=== PATIENT | male | born 1970 | race Caucasian/White ===

== ENCOUNTER 2017-08-06 12:30 | Outpatient (RCR) | payer MEDICARE, SELFPAY ==
--- NOTE | 2017-08-06 14:09 | HP.PTEVAL_ITS ---
Patient's Visit Information BRIAN DAVILA is a 47 year old M referred to Physical Therapy by Freedom Markham DO with a diagnosis of Chronic pain syndrome. Date of Evaluation: 08/06/17 Physical Therapist: Vlad Carlton PT, - Visit Plan Frequency: 2x /Week Duration: 3-6 weeks Plan: Aquatic therapy program consisting of UE/LE strengthening, core and scapular stab, and HEP - Subjective Subjective: Pt reports he has had nonhodgkins lymphoma for over 10 years now. Pt reports he has been treated for this over a 10 year life span. Pt reports he has become debilitated over this time span. Pt reports most of his joints are bone on bone at his time, and has pain throughout his entire body. Pt notes he has OA and RA secondary to the chemo he has taken. Pt reports he is CA free in one month which will be for one year. Pt notes this is the third time this has happened. Pt reports everything is difficult including walking, and riding his bike. Pt notes he pays for those activiies for several days afterwards. Pt reports his goal is to be able to get some level of pain relief from the therapy. - Pain overall body Pain Intensity (Out of 10): 4 Pain Intensity Range: 10 Comment: without meds - Objective Neuro: B UE and LE sensation are WNL to light touch. all reflexes= 1/3. MMT: B UE/LE strength is 3/5 and painful with all testing. Gait: Pt able to ambulate 120 until becoming winded and complaining of hip and knee pain. ROM: B UE's and LE's are WFL at this time - Goals Goal 1:: Decrease overall body pain x 25 percent to aid with IADL's Goal Time Frame: 4-6 Weeks Goal 2:: Increase B UE and LE strength x 1 grade to aid with IADL's Goal Time Frame: 4-6 Weeks Goal 3:: I with HEP Goal Time Frame: 4-6 Weeks - Rehabilitation Potential Physical Therapy Diagnosis: Pt is weak and painful throughout his body secondary to residual effects from non-hogdkins lymphoma Rehabilitation Potential: Good - Anticipated Interventions Patient/Client Instruction: Educate patient on: Condition, Plan of Care For the Purpose of:: To improve self management Therapeutic Exercise to Include: Strength training, Endurance training, Postural training, Flexibilty training, In an aquatic setting, Dynamic Lumbar Stabilization, Scapular Strength/Stabilization For the Purpose of:: To decrease pain, To improve muscle performance and motor function, To improve ability to perform ADL's Thank you for the opportunity to evaluate your patient. For Medicare and Medicare HMO plans, please review the plan of care and approve it. It will need to be FAXED BACK to us at [phone] for Medicare purposes. Please let me know if there are questions or concerns regarding this plan of care. Physician Signature: Date:
[2017-08-19 18:14] LABS: Absolute Lymphocyte Count 1.89 X10^3/ul (0.83-4.51); Absolute Neutrophil Count 6.6 X10^3/uL (2.0-7.7); Basophil# 0.05 X10^3/uL; Basophil% 0.5 % (0-1); Eosinophil# 0.42 X10^3/uL; Eosinophils% 4.3 % (0-5); Hematocrit 50.3 % (40-54); Hemoglobin 17.7 g/dl (13.0-16.5); Lymphocyte # 1.89 X10^3/ul (4.0); Lymphocyte % 19.1 % (19-41); Mean Corp Hgb Conc 35.2 g/gl (32-36); Mean Corpuscular Hgb 31.2 pg (27.0-32.0); Mean Corpuscular Volume 88.6 fL (80-94); Mean Platelet Vol. 12.1 fl (6.2-12.0); Monocyte# 0.86 X10^3/uL; Monocyte% 8.7 % (0-10); Neutrophil # 6.62 X10^3/uL (2.7-7.7); POSITIVE COUNT NO; POSITIVE DIFFERENTIAL NO; POSITIVE MORPHOLOGY NO; Platelet Count 257 K/mm3 (150-450); RBC Distribution Width CV 12.8 % (11.6-14.6); RBC Distribution Width SD 41.3 fl (35.1-43.9); Red Blood Count 5.68 M/mm3 (4.6-6.2); White Blood Count 9.9 K/mm3 (4.4-11.0)
[2017-08-19 18:25] LABS: Cholesterol 169 mg/dL (200); High Density Lipoprotein 43 mg/dL; Thyroid Stim Hormone (TSH) 0.82 uIU/mL (0.358-3.74); Triglycerides 170 mg/dL; Very Low Density Lipoprotein 34 mg/dL (5-40)
[2017-08-19 18:53] LABS: Hemoglobin A1c 5.5 % (4.2-6.3)
[2017-08-20 09:05] LABS: Vitamin D,25 Hydroxy 12.6 ng/mL
[2017-08-20 09:50] LABS: ALB/GLOB Ratio 1.4 RATIO (0.9-2.4); AST(SGOT) 29 U/L (15-37); Alanine Aminotransfer ALT/SGPT 43 U/L (12-78); Albumin, Serum 4.2 g/dL (3.4-5.0); Alkaline Phosphatase 140 U/L (45-117); Anion Gap 12 (5-15); BUN 8 mg/dL (7-18); BUN/Creat Ratio 8.5 RATIO (10-20); Calcium,Total 8.7 mg/dL (8.5-10.1); Chloride 110 mmol/L (98-107); Creatinine, Serum 0.94 mg/dL (0.70-1.30); EST Glomerular Filtration Rate 91 mL/min (>60); Est Glom Filt Rate - Afr Amer 110 mL/min (>60); Ferritin 64 ng/mL (26-388); Glucose 84 mg/dL (70-110); Iron 113 ug/dL (65-175); Iron Binding Capacity,Total 425 ug/dL (250-450); PERCENT IRON SATURATION 26.6 % (15.0-55.0); Potassium 4.3 mmol/L (3.5-5.1); Protein, Total 7.2 g/dL (6.4-8.2); Sodium Level 144 mmol/L (136-145)
--- NOTE | 2017-10-23 13:23 | HP.PT.NRP ---
HP - Discharge Summary (1) - Patient Information BRIAN DAVILA was seen in my office for initial evaluation on 08/06/17. The following Plan of Care was established for this patient: Initial Frequency: 2x /Week Initial Duration: 3-6 weeks - Anticipated Interventions Patient/Client Instruction: Educate patient on: Condition, Plan of Care For the Purpose of:: To improve self management Therapeutic Exercise to Include: Strength training, Endurance training, Postural training, Flexibilty training, In an aquatic setting, Dynamic Lumbar Stabilization, Scapular Strength/Stabilization For the Purpose of:: To decrease pain, To improve muscle performance and motor function, To improve ability to perform ADL's This patient was last seen in our office . Pertinent comments regarding their Physical therapy will appear below: Pt was treated for 4 PT visits through the date of 08/19/17 for his shoulder pain. Pt did not return after that visit through todays date, and is therefore discontinued at this time with Rx not being re-assessed At this point I will be discontinuing this patient from physical therapy. I would be happy to see this patient again in the future if found appropriate by the physician. Thank you! Vlad Carlton, PT,
== END 2017-08-19 19:00 | disposition home or self-care (01) ==
LOC: PT 13:03
PROVIDERS: Family Medicine; Family Provider Internal Medicine; PCP Internal Medicine; Visit Provider Anesthesiology Pain Medicine
DX: M17.0 Bilateral primary osteoarthritis of knee (principal); F11.20 Opioid dependence, uncomplicated; M15.9 Polyosteoarthritis, unspecified; Z85.72 Personal history of non-Hodgkin lymphomas; M79.1 Myalgia; G89.4 Chronic pain syndrome; D75.1 Secondary polycythemia; Z79.899 Other long term (current) drug therapy; R73.02 Impaired glucose tolerance (oral); F41.8 Other specified anxiety disorders; E55.9 Vitamin D deficiency, unspecified; C83.10 Mantle cell lymphoma, unspecified site
CPT/HCPCS: 36415; 80053; 80061; 82306; 82728; 83036; 83540; 83550; 84443; 85025; 97113 ×3; 97163; G8978; G8979

== ENCOUNTER → 2017-11-05 16:39 | Outpatient (CLI) | payer MEDICARE, SELFPAY ==
[2017-11-03 09:26] VITALS: BP 139/83; BMI 28.7
[2017-11-05 18:21] LABS: Potassium 3.9 mmol/L (3.5-5.1)
== END ==
PROVIDERS: Family Provider Family Medicine; PCP Family Medicine; Visit Provider Family Medicine
DX: E87.6 Hypokalemia (principal)
CPT/HCPCS: 36415; 84132

== ENCOUNTER → 2017-11-05 18:09 | Outpatient (CLI) | payer MEDICARE, SELFPAY ==
[2017-11-03 09:26] VITALS: BP 139/83; BMI 28.7
--- NOTE | 2017-11-05 | FLU_PTH ---
PATIENT: BIRAN DAVILA LOC: [facility] U#:[id number] AGE/SX: 55/M ROOM: RE11/05/[address]: Dr. Kleber Worley MD : 1970 BED: DIS: SPEC #: [id number] RECD: 11/05/17 18:17 STATUS: KARL NELSON #: [id number] ELMO: 11/05/17 00:[address]: Kleber Worley DEPT: CYTOLOGY RECD BY: Dasia Goodwin ENTERED: 11/06/17 10:48 SP TYPE: Fluid OTHR DR: Dr. Yang Swann MD Tissues: Buttock, NOS Procedures: Pap Stain (control) Special Stain Group II Surgery Specimen Level IV Cell Block Cytospin Fluid HEADER OPERATION: Mass of subcutaneous mass, right buttock PRE-OP DIAGNOSIS: R22.9 TISSUE SUBMITTED: Fluid of mass, right buttock, for cytology DIAGNOSIS CYTOLOGY Fine needle aspiration, right buttock mass (cytospins and cell block): Negative for malignant cells. AM:jasmin 11/07/17 COMMENT The specimen primarily contains scattered macrophages and polymorphous lymphocytes and amorphous proteinaceous material. Clinical correlation is suggested. CYTOLOGY STUDY Slides are reviewed. CYTOLOGY GROSS Received is 5 ml of pale yellow cloudy fluid labeled with the patient's name and and designated per the requisition as mass right buttock. Submitted for cytology preparation including cell block. / CC:cc 11/06/17 TC:5 CPT: 66725, 26070
== END ==
PROVIDERS: Family Provider Family Medicine; PCP Family Medicine; Visit Provider Surgery
DX: R22.9 Localized swelling, mass and lump, unspecified (principal); E87.6 Hypokalemia
CPT/HCPCS: 36415; 84132; 87070; 87075; 87205; 88108; 88305; 88313

== ENCOUNTER → 2017-11-11 14:47 | Outpatient (CLI) | payer MEDICARE, SELFPAY ==
[2017-11-11 16:17] LABS: ALB/GLOB Ratio 1.5 RATIO (0.9-2.4); AST(SGOT) 23 U/L (15-37); Alanine Aminotransfer ALT/SGPT 49 U/L (16-61); Albumin, Serum 4.5 g/dL (3.2-5.0); Alkaline Phosphatase 132 U/L (45-117); Anion Gap 9 (5-15); BUN 23 mg/dL (7-18); BUN/Creat Ratio 21.5 RATIO (10-20); Calcium,Total 9.4 mg/dL (8.5-10.1); Chloride 104 mmol/L (98-107); Creatinine, Serum 1.07 mg/dL (0.70-1.30); EST Glomerular Filtration Rate 78 mL/min (>60); Est Glom Filt Rate - Afr Amer 94 mL/min (>60); Ferritin 181 ng/mL (26-388); Globulin 3.1 g/dL (2.2-4.2); Glucose 84 mg/dL (74-106); Iron 182 ug/dL (65-175); Iron Binding Capacity,Total 426 ug/dL (250-450); Protein, Total 7.6 g/dL (6.4-8.2); Sodium Level 138 mmol/L (136-145)
== END ==
PROVIDERS: Family Provider Family Medicine; PCP Family Medicine; Visit Provider Family Medicine
DX: D75.1 Secondary polycythemia (principal)
CPT/HCPCS: 36415; 80053; 82728; 83540; 83550

== ENCOUNTER → 2017-11-25 14:08 | Outpatient (CLI) | payer MEDICARE, SELFPAY ==
--- NOTE | 2017-11-25 14:13 | RAD_ITS ---
STUDY: X-RAY - CERVICAL SPINE REASON FOR EXAM: Male, 47 years old. Headaches. TECHNIQUE: 7 view(s) of the cervical spine were obtained including oblique view in extension and flexion views.. COMPARISON: None FINDINGS: Normal anterior atlantoaxial articulation. Normal odontoid process. There is straightening of the normal cervical lordosis. There is multi-level endplate spondylosis. Normal visualized intervertebral neuroforamina. The soft tissue structures are unremarkable. RAD/Cerv Spine 4 or 5 Views IMPRESSION: Disc space narrowing and spondylosis more prominent at the C5-C6 and C6-C7 levels. Electronically Signed: Matthias Hernandez MD at 15:59 EST Tel [phone], Service support ,
== END ==
PROVIDERS: Family Provider Family Medicine; PCP Family Medicine; Visit Provider Family Medicine
DX: M48.02 Spinal stenosis, cervical region (principal); M47.892 Other spondylosis, cervical region; R51 Headache
CPT/HCPCS: 72050

== ENCOUNTER → 2017-11-28 17:52 | Outpatient (CLI) | payer MEDICARE, SELFPAY ==
--- NOTE | 2017-11-28 17:55 | MRI_ITS ---
STUDY: MRI BRAIN WITH AND WITHOUT CONTRAST REASON FOR EXAM: Male, 47 years old. Left neck pain with blurred vision TECHNIQUE: Standardized multiplanar fat and water weighted pulse sequences were obtained. 10 ml of Gadavist contrast material was administered intravenously for the contrast portion of the examination. COMPARISON: None. FINDINGS: Normal size of the ventricles and extra-axial spaces for the patient's age. There are scattered tiny punctate white matter lesions without mass effect or restricted diffusion. Normal bilateral basal ganglia. Normal thalami. There is no extra-axial fluid accumulation. Normal flow voids within the major intracranial circulation suggesting patency by spin echo criteria. Normal venous enhancement. There is no enhancing intra-axial or extra-axial abnormality. There are tiny perivascular spaces in the right midbrain. Normal sella turcica, pituitary gland, infundibular stalk, optic chiasm and hypothalamus. Normal tectal plate and pineal gland. Normal midbrain, kvng and medulla. Normal cerebellum. Normal basal cisterns. Normal bilateral temporal bones. Normal bilateral internal auditory canals. No demonstrated orbital abnormality, within the constraints of a routine brain study. There is a mucous retention cyst within the maxillary sinuses bilaterally and minor mucosal thickening of the ethmoid air cells. Normal calvarium and skull base. Normal visualized soft tissue structures. Normal visualized upper cervical spine. MRI/Brain W/WO Contrast IMPRESSION: Minor periventricular white matter ischemic changes without evidence for infarct. No evidence for metastatic disease. Electronically Signed: Torey Lamar MD at 19:15 EST , Service support ,
== END ==
PROVIDERS: Family Provider Family Medicine; PCP Family Medicine; Visit Provider Family Medicine
DX: R42 Dizziness and giddiness (principal)
CPT/HCPCS: 70553; A9585

== ENCOUNTER 2018-02-23 23:36 | Inpatient (IN) | payer MEDICARE, SELFPAY ==
[2018-02-23 23:37] VITALS: BP 120/82; PULSE 96; RESP 27; TEMP 37.2; O2SAT 89; BMI 29.0
[2018-02-23 23:39] VITALS: RESP 26; O2SAT 94
[2018-02-23 23:45] VITALS: O2SAT 93
[2018-02-24] VITALS (16 sets, daily range): BP systolic 105–132; BP diastolic 55–81; PULSE 74–98; RESP 12–20; TEMP 36.4–37.7; O2SAT 93–98; BMI 29.0; BMI 29.1
--- NOTE | 2018-02-24 00:11 | EKG12_ITS ---
Test Reason : SOB Blood Pressure : / mmHG Vent. Rate : 087 BPM Atrial Rate : 087 BPM P-R Int : 156 ms QRS Dur : 080 ms QT Int : 374 ms P-R-T Axes : 045 041 041 degrees QTc Int : 450 ms Normal sinus rhythm Normal ECG Confirmed by ROGER VIRGEN ([id number]), rewrite editor JAH REECE ([id number]) on 03/09/2018 6:00:47 PM Referred By: RODGER Confirmed By:ROGER VIRGEN
--- NOTE | 2018-02-24 00:12 | RAD_ITS ---
STUDY: X-RAY CHEST REASON FOR EXAM: Male, 47 years old. Shortness of breath, fever and cough. TECHNIQUE: PA and lateral views of the chest. COMPARISON: 03/23/2017. FINDINGS: The lungs are clear and expanded. There is no demonstrated pleural abnormality. Normal size heart. Normal mediastinum and melva. Normal visualized pulmonary arteries. There is atherosclerotic calcification of the aortic arch. There is mild levoscoliosis of the lower thoracic spine. Normal visualized ribs, clavicles, and shoulders. There is no demonstrated abnormality of the visualized soft tissue structures of the upper abdomen. RAD/Chest PA and Lateral IMPRESSION: No active pulmonary disease. Electronically Signed: Yoan Jones MD at 1:09 EDT Tel , Service support ,
[2018-02-24] MEDS: Ketorolac 30 MG/ML Syringe IV (00:18)
[2018-02-24] MEDS: 0.9% Normal Saline 1,000 ML 1000 ML IV (00:18)
[2018-02-24] MEDS: Ondansetron 4 MG/2 ML Vial IV (00:18)
[2018-02-24 00:20] LABS: Absolute Neutrophil Count 15.4 X10^3/uL (2.0-7.7); Basophil# 0.03 X10^3/uL; Basophil% 0.2 % (0-1); Eosinophils% 2.3 % (0-5); Hematocrit 42.2 % (40-54); Hemoglobin 14.3 g/dl (13.0-16.5); Mean Corp Hgb Conc 33.9 g/gl (32-36); Mean Corpuscular Hgb 30.7 pg (27.0-32.0); Mean Corpuscular Volume 90.6 fL (80-94); Mean Platelet Vol. 11.2 fl (6.2-12.0); Monocyte# 1.17 X10^3/uL; Monocyte% 6.6 % (0-10); Neutrophil # 15.38 X10^3/uL (2.7-7.7); Neutrophil % 86.8 % (47-70); POSITIVE COUNT NO; POSITIVE DIFFERENTIAL NO; POSITIVE MORPHOLOGY NO; Platelet Count 229 K/mm3 (150-450); RBC Distribution Width CV 12.6 % (11.6-14.6); RBC Distribution Width SD 41.3 fl (35.1-43.9); Red Blood Count 4.66 M/mm3 (4.6-6.2); White Blood Count 17.7 K/mm3 (4.4-11.0)
[2018-02-24 00:32] LABS: Anion Gap 9 (5-15); BUN 22 mg/dL (7-18); BUN/Creat Ratio 13.8 RATIO (10-20); Calcium,Total 9.1 mg/dL (8.5-10.1); Chloride 110 mmol/L (98-107); EST Glomerular Filtration Rate 49 mL/min (>60); Est Glom Filt Rate - Afr Amer 59 mL/min (>60); Glucose 118 mg/dL (74-106); Potassium 3.9 mmol/L (3.5-5.1); Sodium Level 143 mmol/L (136-145)
[2018-02-24] MEDS: Ipratropium/Albuterol Sulfate 3 ML AMPUL.NEB INHALATION ×5 (00:34→19:27)
[2018-02-24 01:03] LABS: Lactic Acid 1.2 mmol/L (0.4-2.0)
--- NOTE | 2018-02-24 02:07 | PCM.HP.STD ---
Problem List (1) History of partial colectomy Status: Chronic (2) Lymphoma Status: Chronic Comment: Mantle cell (3) Insomnia Status: Chronic (4) Chronic pain disorder Status: Chronic (5) Nausea Status: Resolved (6) Hypertension Status: Chronic (7) Anxiety Status: Chronic (8) GERD (gastroesophageal reflux disease) Status: Chronic (9) COPD (chronic obstructive pulmonary disease) Status: Acute Qualifiers: COPD type: unspecified COPD Qualified Code(s): J44.9 - Chronic obstructive pulmonary disease, unspecified (10) Marijuana use Status: Suspected (11) Tobacco dependence Status: Resolved History of Present Illness Date of Admission: 02/24/18 Chief Complaint: shortness of breath The patient is a 47 year old male patient with a significant past medical history of lymphoma. He was recently treated for pneumonia two weeks ago after having a routine follow up CT scan for his oncologist. For the past two days he has had more trouble breathing and worsening shortness of breath. He has a temp of 102 at home and requires oxygen at this time. The patient improved with breathing treatment. He has a wbc count of 17,000. He will be admitted for COPD exacerbation. Past Medical History Past Medical History (Chronic Problems): Chronic Problems (Last Reviewed 11/05/17 @ 16:06 by Cassie Trujillo) History of partial colectomy (Chronic) Lymphoma (Chronic) Mantle cell Insomnia (Chronic) Chronic pain disorder (Chronic) Hypertension (Chronic) Anxiety (Chronic) GERD (gastroesophageal reflux disease) (Chronic) Allergies hydrocodone bitartrate [From Vicodin] Adverse Reaction (Verified 02/23/18 23:37) Nausea Home Medications: Ambulatory Orders Medication Instructions Recorded Albuterol IH (ProAir) [Proair Hfa] 2 puff INHALATION Q6H PRN PRN 07/18/14 Diazepam [Valium] 10 mg PO BID 07/18/14 Hydrochlorothiazide 25 mg PO DAILY 07/18/14 Ibuprofen [Motrin] 800 mg PO TID PRN PRN 07/18/14 Metoprolol(XL)Succ [Toprol Xl 100 mg PO DAILY 07/18/14 (Beta Kyle)] Omeprazole [Prilosec] 20 mg PO BID 07/18/14 Oxycodone HCl/Acetaminophen 1 tab PO Q6H PRN PRN 07/18/14 [Percocet 5-325] Zolpidem Tartrate [Ambien] 20 mg PO DAILY 07/18/14 fentaNYL patch [Duragesic patch] 75 mcg TRANSDERM. Q72H 07/18/14 Folic Acid 800 mcg PO DAILY@0800 01/16/17 Potassium Chloride [K-Dur] 20 meq PO DAILY 01/16/17 proMETHazine tablet [Phenergan 25 mg PO Q6H PRN PRN #10 tab 01/17/17 tablet] Amlodipine [Norvasc] 10 mg PO DAILY 03/23/17 Ondansetron [Zofran] 8 mg PO Q8H PRN PRN 03/23/17 predniSONE tablet See Taper PO DAILY #30 tab 03/24/17 buspirone 7.5 mg tablet 7.5 mg PO BID 11/03/17 cholecalciferol (vitamin D3) 50,000 unit PO QWEEK 11/03/17 50,000 unit capsule hydroxyzine HCl 50 mg tablet 50 mg PO TID-QID PRN 11/03/17 Clonazepam [Klonopin] 0.5 mg PO DAILY 02/23/18 Surgical History: - - Bowel resection secondary to diverticulitis, hernia repair. Psychiatric History: Anxiety Smoking Status: Former smoker - *Family History Maternal History Items: No pertinent history Paternal History Items: Diabetes, Hypertension Review of Systems Constitutional: Reports: Fever. Denies: Chills, Weight Change HEENT: Denies: Head Aches, Sinus Congestion, Sinus Drainage Cardiovascular: Denies: Chest Pain, Palpitations Respiratory: Reports: Shortness of breath at rest, Shortness of breath upon exertion. Denies: Cough, Sputum production Gastrointestinal: Denies: Abdominal Pain, Nausea, Vomiting Genitourinary: Denies: Dysuria Musculoskeletal: Denies: Joint Pain, Joint Tenderness Skin: Denies: Rash, Wounds Neurological: Denies: Numbness, Tingling, Focal weakness Psychiatric: Denies: Anxiety, Depression, Homicidal Ideations, Suicidal Ideations Hematologic/ Lymphatic: Denies: Easy Bruising, Easy Bleeding VTE Information - Inpt Only VTE Present on Admission: No VTE Mechan Device Prophylaxis: None VTE Pharm Prophylaxis ordered?: Yes - Physical Exam General: Alert, Oriented x3, Cooperative HEENT: Atraumatic, Normocephalic Neck: Supple Lungs: Normal air movement, Rhonchi, Wheezes Cardiovascular: Regular rate, Normal S1, Normal S2, No murmurs Abdomen: Bowel Sounds Present Extremities: Capillary Refill Less than 3 Seconds Skin: No rashes Musculoskeletal: No Tenderness to Palpation of Joints or Extremities Neurological: Neuro grossly intact Psych/Mental Status: Normal Affect, Appropriate Vital Signs Temp Pulse Resp BP Pulse Ox 98.9 F 74 16 132/69 H 98 02/23/18 23:37 02/24/18 01:16 02/24/18 01:16 02/24/18 01:16 02/24/18 01:16 Oxygen Flow Rate (L/min) 3 Oxygen Delivery Method Nasal Cannula Weight: 214 lb 4.629 oz Body Mass Index (BMI) 29.0 Laboratory Tests Past 24 Hrs 02/23/18 02/23/18 02/24/18 23:59 23:59 00:25 WBC 17.7 H RBC 4.66 Hgb 14.3 Hct 42.2 MCV 90.6 MCH 30.7 MCHC 33.9 RDW 12.6 RDW Differential 41.3 Plt Count 229 MPV 11.2 Immature Gran % (Auto) 0.100 Neut % (Auto) 86.8 H Lymph % (Auto) 4.0 L [place] % (Auto) 6.6 Eos % (Auto) 2.3 Baso % (Auto) 0.2 Absolute Neuts (auto) 15.4 H Absolute Lymphs (auto) 0.70 L Total Counted Not Reportable Sodium 143 Potassium 3.9 Chloride 110 H Carbon Dioxide 24.0 Anion Gap 9 BUN 22 H Creatinine 1.60 H Estim Creat Clear Calc 61.30 Est GFR (MDRD) Af Amer 59 L Est GFR (MDRD) Non-Af 49 L BUN/Creatinine Ratio 13.8 Glucose 118 H Lactic Acid 1.2 Calcium 9.1 Assessment/Plan Chronic Problems (Last Reviewed 11/05/17 @ 16:06 by Cassie Truijllo) Hypertension (Chronic) Anxiety (Chronic) GERD (gastroesophageal reflux disease) (Chronic) COPD (chronic obstructive pulmonary disease) (Chronic) Marijuana use (Chronic) Tobacco dependence (Chronic) Assessment - COPD exacerbation Plan - admit to medical surgical floor - oxygen per protocol - Levaquin 500mg IV q day, solumedrol 40mg IV q 8hrs, duoneb INH q 4hrs prn - continue routine home medications - repeat cbc,bmp in am - LMWH for DVT prophylaxis Code Visit Inpatient E&M: 11899 Init Hosp L2
--- NOTE | 2018-02-24 02:11 | ED.DCSUM_ITS ---
- ER Visit Summary Date of Service: 02/24/18 Chief Complaint: Shortness of breath History of Present Illness: The patient is a 43 M who presents with shortness of breath and cough. He states that he has not felt well since yesterday. He has a history of non-Hodgkin lymphoma and is currently in remission. He had a CT of the chest 2 months ago and incidentally was noted to have pneumonia was treated with antibiotics and improved. He reports now fever of 102.3 at home. He reports congestion rhinorrhea sore throat nonproductive cough nausea vomiting diarrhea and poor oral intake today. Physical Examination: Afebrile pulse ox 94% on 4 L nasal cannula respiratory rate 26 Moist mucous membranes fine heart regular rate and rhythm Scattered inspiratory and expiratory wheezing Abdomen soft Alert Test Results: EKG shows sinus rhythm at a rate of 87. Laboratory studies notable for white blood cell count 17.7, creatinine 1.6. Lactic acid normal. Blood cultures were also sent. Chest x-ray shows no acute disease. Emergency Department Course and Treatment: Patient reports adverse side effects from nebulized aerosols however did agree to one DuoNeb. He did have significant improvement with this. He was given IV Solu-Medrol. Although he has leukocytosis his vitals are stable he is afebrile here and there is no infiltrate on chest x-ray. The patient does have COPD exacerbation. His last creatinine was 0.9. He has an acute kidney injury. He was discussed with hospitalist and admitted. Treatment Plan: [] Disposition: Admit Impression: COPD exacerbation Acute kidney injury This note was generated with [employer] dictation software. It may contain incorrect words, spelling, and punctuation that were not noted in review of the chart prior to signing ED Disposition - Plan for ED Patient: Chief Complaint: Shortness of Breath Referrals: Linsey Medley MD [Primary Care Provider] -
[2018-02-24] MEDS: MethylPREDNISolone 125 MG/2 ML Vial IV (02:29)
[2018-02-24] MEDS: Ibuprofen 400 MG Tablet 800 MG PO (03:40)
[2018-02-24] MEDS: clonazePAM 0.5 MG Tablet PO ×3 (04:17→21:13)
[2018-02-24 06:08] LABS: Absolute Lymphocyte Count 0.66 X10^3/ul (0.83-4.51); Absolute Neutrophil Count 11.8 X10^3/uL (2.0-7.7); Basophil# 0.01 X10^3/uL; Basophil% 0.1 % (0-1); Eosinophil# 0.02 X10^3/uL; Eosinophils% 0.2 % (0-5); Hematocrit 36.7 % (40-54); Hemoglobin 12.7 g/dl (13.0-16.5); Lymphocyte # 0.66 X10^3/ul (4.0); Lymphocyte % 5.2 % (19-41); Mean Corp Hgb Conc 34.6 g/gl (32-36); Mean Corpuscular Hgb 31.6 pg (27.0-32.0); Mean Corpuscular Volume 91.3 fL (80-94); Mean Platelet Vol. 11.6 fl (6.2-12.0); Monocyte# 0.14 X10^3/uL; Monocyte% 1.1 % (0-10); Neutrophil # 11.77 X10^3/uL (2.7-7.7); Neutrophil % 93.3 % (47-70); Platelet Count 166 K/mm3 (150-450); RBC Distribution Width CV 12.1 % (11.6-14.6); RBC Distribution Width SD 39.8 fl (35.1-43.9); Red Blood Count 4.02 M/mm3 (4.6-6.2); White Blood Count 12.6 K/mm3 (4.4-11.0)
[2018-02-24] MEDS: 0.9% NaCl Peripheral Flush Adult/Peds IV ×2 (06:08→21:12)
[2018-02-24 06:13] LABS: POSITIVE COUNT NO; POSITIVE DIFFERENTIAL NO; POSITIVE MORPHOLOGY NO
[2018-02-24 06:45] LABS: ALB/GLOB Ratio 1.3 RATIO (0.9-2.4); AST(SGOT) 21 U/L (15-37); Alanine Aminotransfer ALT/SGPT 26 U/L (16-61); Albumin, Serum 3.8 g/dL (3.2-5.0); Alkaline Phosphatase 93 U/L (45-117); Anion Gap 11 (5-15); BUN 21 mg/dL (7-18); BUN/Creat Ratio 14.4 RATIO (10-20); Calcium,Total 8.3 mg/dL (8.5-10.1); Chloride 108 mmol/L (98-107); Creatinine, Serum 1.46 mg/dL (0.70-1.30); EST Glomerular Filtration Rate 54 mL/min (>60); Est Glom Filt Rate - Afr Amer 66 mL/min (>60); Estimated Creatinine Clearance 67.18 ml/min; Globulin 2.9 g/dL (2.2-4.2); Glucose 185 mg/dL (74-106); Potassium 3.8 mmol/L (3.5-5.1); Protein, Total 6.7 g/dL (6.4-8.2); Sodium Level 142 mmol/L (136-145)
[2018-02-24] MEDS: Folic Acid 1 MG Tablet PO (07:38)
[2018-02-24] MEDS: hydroCHLOROthiazide 25 MG Tablet PO (10:15)
[2018-02-24] MEDS: Enoxaparin 40 MG/0.4 ML Syringe SC (10:16)
[2018-02-24] MEDS: Metoprolol(XL)Succ 100 MG Tablet PO (10:17)
[2018-02-24] MEDS: Pantoprazole Sodium 20 MG Tablet PO ×2 (10:17→21:12)
[2018-02-24] MEDS: amLODIPine 10 MG Tablet PO (10:18)
[2018-02-24] MEDS: levoFLOXacin IV 500 MG/100 ML BAG 100 MG IV (10:18)
--- NOTE | 2018-02-24 12:21 | CASEMGMT ---
See RN CM Assessment Link. DC PLAN HOME. no needs identified. Nereida POTTSN RN ACM
--- NOTE | 2018-02-24 17:34 | PCM.HOSP.N ---
Hospitalist Note The patient was admitted earlier today by Dr. Jefferson and I reviewed his H&P. I also saw the patient, evaluated her and obtained relevant history, performed a clinical exam reviewed diagnostic data. We will continue on IV steroids, bronchodilators and antibiotic for COPD exacerbation.
[2018-02-24] MEDS: oxyCODONE 5 MG Tablet 10 MG PO (21:28)
[2018-02-24] MEDS: Zolpidem Tartrate 5 MG Tablet PO (22:55)
[2018-02-25] VITALS (11 sets, daily range): BP systolic 109–127; BP diastolic 58–68; PULSE 75–96; RESP 16–20; TEMP 36.4–37; O2SAT 2–96
[2018-02-25] MEDS: Ipratropium/Albuterol Sulfate 3 ML AMPUL.NEB INHALATION ×5 (00:05→22:36)
[2018-02-25] MEDS: proMETHazine 25 MG Tablet PO (00:55)
[2018-02-25] MEDS: 0.9% NaCl Peripheral Flush Adult/Peds IV ×3 (06:39→22:55)
[2018-02-25] MEDS: hydroCHLOROthiazide 25 MG Tablet PO (07:38)
[2018-02-25] MEDS: Folic Acid 1 MG Tablet PO (07:38)
[2018-02-25] MEDS: Pantoprazole Sodium 20 MG Tablet PO ×2 (07:39→22:55)
[2018-02-25] MEDS: Metoprolol(XL)Succ 100 MG Tablet PO (07:39)
[2018-02-25] MEDS: amLODIPine 10 MG Tablet PO (07:39)
[2018-02-25] MEDS: clonazePAM 0.5 MG Tablet PO ×2 (07:42→22:55)
[2018-02-25] MEDS: oxyCODONE 5 MG Tablet 10 MG PO (07:46)
--- NOTE | 2018-02-25 09:45 | SLEEP ---
Seen patient and education was given on screening/testing for sleep disorder breathing. Patient verbalizes understanding and states that he has had a sleep study and it was negative that he has been dx with insomnia and takes 20mg of Ambien. I left patient with a brochure of information.
[2018-02-25] MEDS: Enoxaparin 40 MG/0.4 ML Syringe SC (10:08)
[2018-02-25] MEDS: levoFLOXacin IV 500 MG/100 ML BAG 100 MG IV (10:08)
--- NOTE | 2018-02-25 17:06 | PCM.PN.HOSP ---
Subjective: CC: Shortness of breath and cough Objective: The patient has improved but he still has significant wheezing, cough and shortness of breath. He is still requiring supplemental oxygen per nasal cannula. Vitals/I&O's: Vital Signs Temp Pulse Resp BP Pulse Ox 98.6 F 91 18 109/66 2 02/25/18 13:20 02/25/18 13:20 02/25/18 13:20 02/25/18 13:20 02/25/18 13:20 Oxygen Flow Rate (L/min) 2 Oxygen Delivery Method Nasal Cannula Weight: 97.3 kg Body Mass Index (BMI) 29.0 Intake and Output for Last 24 Hours 02/23/18 02/24/18 02/25/18 23:59 23:59 23:59 Intake Total 900 / 900 2400 / 2400 Balance 900 / 900 2400 / 2400 General: Alert, Oriented x3 Neck: Supple Lungs: Wheezes Cardiovascular: Normal S1, Normal S2 Abdomen: Bowel Sounds Present, Soft, Non Tender Extremities: No edema Current Medications Albuterol Sulfate (Ventolin Aerosols) 2.5 mg INHALATION Q6H PRN PRN Reason: SHORTNESS OF BREATH Albuterol/Ipratropium (Duoneb) 3 ml INHALATION Q4H.RT [facility] Last Admin: 02/25/18 14:15 Dose: Not Given Amlodipine Besylate (Norvasc) 10 mg PO DAILY [facility] Last Admin: 02/25/18 07:39 Dose: 10 mg Clonazepam (Klonopin) 0.5 mg PO BID [facility] Last Admin: 02/25/18 07:42 Dose: 0.5 mg Enoxaparin Sodium (Lovenox) 40 mg SC DAILY@1000 [facility] Last Admin: 02/25/18 10:08 Dose: 40 mg Fentanyl (Duragesic Patch) 75 mcg TRANSDERM. Q72H [facility] Last Admin: 02/24/18 10:14 Dose: 75 mcg Folic Acid (Folic Acid) 1 mg PO DAILY@0800 [facility] Last Admin: 02/25/18 07:38 Dose: 1 mg Hydrochlorothiazide (Hctz) 25 mg PO DAILY [facility] Last Admin: 02/25/18 07:38 Dose: 25 mg Hydroxyzine Pamoate (Vistaril Pamoate Capsule) 50 mg PO 4X/DAY PRN PRN PRN Reason: ANXIETY Levofloxacin (Levaquin Iv) 500 mg in 100 mls @ 100 mls/hr IV Q24 [facility] Last Admin: 02/25/18 10:08 Dose: 100 mls/hr Ibuprofen (Motrin) 800 mg PO TID PRN PRN PRN Reason: PAIN Last Admin: 02/24/18 03:40 Dose: 800 mg Magnesium Hydroxide (Milk Of Magnesia) 30 ml PO DAILY PRN PRN PRN Reason: Constipation Methylprednisolone (Solu-Medrol) 40 mg IV Q8 [facility] Last Admin: 02/25/18 13:23 Dose: 40 mg Metoprolol Succinate (Toprol Xl (Beta Kyle)) 100 mg PO DAILY [facility] Last Admin: 02/25/18 07:39 Dose: 100 mg Ondansetron HCl (Zofran) 8 mg PO Q8H PRN PRN PRN Reason: NAUSEA Oxycodone HCl (Oxyir) 10 mg PO Q4H PRN PRN Reason: PAIN Last Admin: 02/25/18 07:46 Dose: 10 mg Pantoprazole Sodium (Protonix) 20 mg PO BID [facility] Last Admin: 02/25/18 07:39 Dose: 20 mg Potassium Chloride (K-Dur) 20 meq PO DAILY [facility] Last Admin: 02/25/18 07:38 Dose: 20 meq Promethazine HCl (Phenergan Tablet) 25 mg PO Q6H PRN PRN PRN Reason: NAUSEA Last Admin: 02/25/18 00:55 Dose: 25 mg Sodium Chloride () 5 - 30 ml IV UD PRN PRN Reason: SALINE FLUSH Last Admin: 02/25/18 13:23 Dose: 10 ml Zolpidem Tartrate (Ambien (Generic)) 5 mg PO QHS PRN PRN Reason: INSOMNIA Last Admin: 02/24/18 22:55 Dose: 5 mg Medical Necessity - Tobacco Use Smoking Status: Former smoker Assessment/Plan All Active Problems (Last Reviewed 11/05/17 @ 16:06 by Cassie Trujillo) S/P colonoscopy (Acute) H/O removal of cyst (Acute) Nausea (Resolved) COPD (chronic obstructive pulmonary disease) (Acute) Tobacco dependence (Resolved) Hodgkin lymphoma (Resolved) 1. acute COPD exacerbation; continue on IV steroids, bronchodilators and antibiotics. 2. Acute respiratory failure with hypoxia secondary to #1; we will continue on supplemental oxygen and wean as tolerated, home O2 evaluation. 3. Hypertension ; this is controlled. 4. History of lymphoma currently in remission ,will obtain CT scan of the chest. 5. Leukocytosis; will obtain CBC in a.m. 6. DVT prophylaxis; he is on Lovenox Code Visit Inpatient E&M: 78922 Subs Hosp L2
--- NOTE | 2018-02-25 17:09 | PN_ITS ---
Subjective: CC: Shortness of breath and cough Objective: The patient has improved but he still has significant wheezing, cough and shortness of breath. He is still requiring supplemental oxygen per nasal cannula. Vitals/I&O's: Vital Signs Temp Pulse Resp BP Pulse Ox 98.6 F 91 18 109/66 2 02/25/18 13:20 02/25/18 13:20 02/25/18 13:20 02/25/18 13:20 02/25/18 13:20 Oxygen Flow Rate (L/min) 2 Oxygen Delivery Method Nasal Cannula Weight: 97.3 kg Body Mass Index (BMI) 29.0 Intake and Output for Last 24 Hours 02/23/18 02/24/18 02/25/18 23:59 23:59 23:59 Intake Total 900 / 900 2400 / 2400 Balance 900 / 900 2400 / 2400 General: Alert, Oriented x3 Neck: Supple Lungs: Wheezes Cardiovascular: Normal S1, Normal S2 Abdomen: Bowel Sounds Present, Soft, Non Tender Extremities: No edema Current Medications Albuterol Sulfate (Ventolin Aerosols) 2.5 mg INHALATION Q6H PRN PRN Reason: SHORTNESS OF BREATH Albuterol/Ipratropium (Duoneb) 3 ml INHALATION Q4H.RT [facility] Last Admin: 02/25/18 14:15 Dose: Not Given Amlodipine Besylate (Norvasc) 10 mg PO DAILY [facility] Last Admin: 02/25/18 07:39 Dose: 10 mg Clonazepam (Klonopin) 0.5 mg PO BID [facility] Last Admin: 02/25/18 07:42 Dose: 0.5 mg Enoxaparin Sodium (Lovenox) 40 mg SC DAILY@1000 [facility] Last Admin: 02/25/18 10:08 Dose: 40 mg Fentanyl (Duragesic Patch) 75 mcg TRANSDERM. Q72H [facility] Last Admin: 02/24/18 10:14 Dose: 75 mcg Folic Acid (Folic Acid) 1 mg PO DAILY@0800 [facility] Last Admin: 02/25/18 07:38 Dose: 1 mg Hydrochlorothiazide (Hctz) 25 mg PO DAILY [facility] Last Admin: 02/25/18 07:38 Dose: 25 mg Hydroxyzine Pamoate (Vistaril Pamoate Capsule) 50 mg PO 4X/DAY PRN PRN PRN Reason: ANXIETY Levofloxacin (Levaquin Iv) 500 mg in 100 mls @ 100 mls/hr IV Q24 [facility] Last Admin: 02/25/18 10:08 Dose: 100 mls/hr Ibuprofen (Motrin) 800 mg PO TID PRN PRN PRN Reason: PAIN Last Admin: 02/24/18 03:40 Dose: 800 mg Magnesium Hydroxide (Milk Of Magnesia) 30 ml PO DAILY PRN PRN PRN Reason: Constipation Methylprednisolone (Solu-Medrol) 40 mg IV Q8 [facility] Last Admin: 02/25/18 13:23 Dose: 40 mg Metoprolol Succinate (Toprol Xl (Beta Kyle)) 100 mg PO DAILY [facility] Last Admin: 02/25/18 07:39 Dose: 100 mg Ondansetron HCl (Zofran) 8 mg PO Q8H PRN PRN PRN Reason: NAUSEA Oxycodone HCl (Oxyir) 10 mg PO Q4H PRN PRN Reason: PAIN Last Admin: 02/25/18 07:46 Dose: 10 mg Pantoprazole Sodium (Protonix) 20 mg PO BID [facility] Last Admin: 02/25/18 07:39 Dose: 20 mg Potassium Chloride (K-Dur) 20 meq PO DAILY [facility] Last Admin: 02/25/18 07:38 Dose: 20 meq Promethazine HCl (Phenergan Tablet) 25 mg PO Q6H PRN PRN PRN Reason: NAUSEA Last Admin: 02/25/18 00:55 Dose: 25 mg Sodium Chloride () 5 - 30 ml IV UD PRN PRN Reason: SALINE FLUSH Last Admin: 02/25/18 13:23 Dose: 10 ml Zolpidem Tartrate (Ambien (Generic)) 5 mg PO QHS PRN PRN Reason: INSOMNIA Last Admin: 02/24/18 22:55 Dose: 5 mg Medical Necessity - Tobacco Use Smoking Status: Former smoker Assessment/Plan All Active Problems (Last Reviewed 11/05/17 @ 16:06 by Cassie Trujillo) S/P colonoscopy (Acute) H/O removal of cyst (Acute) Nausea (Resolved) COPD (chronic obstructive pulmonary disease) (Acute) Tobacco dependence (Resolved) Hodgkin lymphoma (Resolved) 1. acute COPD exacerbation; continue on IV steroids, bronchodilators and antibiotics. 2. Acute respiratory failure with hypoxia secondary to #1; we will continue on supplemental oxygen and wean as tolerated, home O2 evaluation. 3. Hypertension ; this is controlled. 4. History of lymphoma currently in remission ,will obtain CT scan of the chest. 5. Leukocytosis; will obtain CBC in a.m. 6. DVT prophylaxis; he is on Lovenox Code Visit Inpatient E&M: 53504 Subs Hosp L2
[2018-02-25] MEDS: Zolpidem Tartrate 5 MG Tablet PO (22:55)
[2018-02-26] VITALS (7 sets, daily range): BP systolic 135–154; BP diastolic 74–94; PULSE 88–98; RESP 16–18; TEMP 36.3–36.4; O2SAT 92–97
[2018-02-26] MEDS: Ipratropium/Albuterol Sulfate 3 ML AMPUL.NEB INHALATION ×3 (02:33→11:29)
[2018-02-26] MEDS: 0.9% NaCl Peripheral Flush Adult/Peds IV ×2 (05:52→09:06)
[2018-02-26 06:08] LABS: Absolute Lymphocyte Count 0.81 X10^3/ul (0.83-4.51); Absolute Neutrophil Count 14.1 X10^3/uL (2.0-7.7); Hemoglobin 11.9 g/dl (13.0-16.5); Lymphocyte # 0.81 X10^3/ul (4.0); Lymphocyte % 5.1 % (19-41); Mean Corpuscular Hgb 31.2 pg (27.0-32.0); Mean Corpuscular Volume 91.6 fL (80-94); Mean Platelet Vol. 11.5 fl (6.2-12.0); Monocyte# 0.77 X10^3/uL; Monocyte% 4.9 % (0-10); Neutrophil # 14.11 X10^3/uL (2.7-7.7); Neutrophil % 89.4 % (47-70); Platelet Count 216 K/mm3 (150-450); RBC Distribution Width CV 12.4 % (11.6-14.6); Red Blood Count 3.82 M/mm3 (4.6-6.2); White Blood Count 15.8 K/mm3 (4.4-11.0)
[2018-02-26 06:35] LABS: POSITIVE COUNT NO; POSITIVE DIFFERENTIAL NO; POSITIVE MORPHOLOGY NO
--- NOTE | 2018-02-26 07:48 | CT_ITS ---
STUDY: CT CHEST WITH CONTRAST REASON FOR EXAM: Male, 47 years old. Cough. Acute respiratory failure. The patient has a history of mantle cell lymphoma and bone marrow transplant. RADIATION DOSAGE (If Supplied By Facility): CTDIvol = ( 20 ) mGy, DLP = ( 868.67 ) mGycm TECHNIQUE: Transaxial imaging was performed following intravenous administration of 100CC ml of Isovue 300 contrast material. Multiplanar coronal and sagittal images were reformatted. Individualized dose optimization techniques were used for this CT. COMPARISON: None. FINDINGS: Small bilateral benign appearing axillary lymph nodes. The lungs are normal. There is no demonstrated pleural abnormality. Normal heart and pericardium. There is a 1.6 cm x 1.3 cm rounded soft tissue density in the precarinal space. This may represent a small lymph node. Normal hilar regions. Normal enhanced pulmonary arteries. There is atherosclerotic calcification of the aortic arch . Normal osseous structures. There is no demonstrated abnormality of the visualized upper abdomen. CT/Chest WITH Contrast IMPRESSION: No acute abnormality is seen. Electronically Signed: Matthias Hernandez MD at 9:58 EDT Tel [phone], Service support ,
[2018-02-26] MEDS: Metoprolol(XL)Succ 100 MG Tablet PO (09:06)
[2018-02-26] MEDS: hydroCHLOROthiazide 25 MG Tablet PO (09:06)
[2018-02-26] MEDS: Folic Acid 1 MG Tablet PO (09:06)
[2018-02-26] MEDS: Pantoprazole Sodium 20 MG Tablet PO (09:06)
[2018-02-26] MEDS: amLODIPine 10 MG Tablet PO (09:06)
[2018-02-26] MEDS: levoFLOXacin IV 500 MG/100 ML BAG 100 MG IV (09:07)
[2018-02-26] MEDS: Enoxaparin 40 MG/0.4 ML Syringe SC (09:07)
[2018-02-26] MEDS: oxyCODONE 5 MG Tablet 10 MG PO (09:09)
[2018-02-26] MEDS: clonazePAM 0.5 MG Tablet PO (09:10)
--- NOTE | 2018-02-26 12:27 | PCM.DC ---
You will use the following diet at home:: Regular Discharge Activity: Return to Normal Activity Call your doctor if your incision/area has: Continuous Slow Oozing Allergies/Adverse Reactions: Allergies hydrocodone bitartrate [From Vicodin] Adverse Reaction (Verified 02/23/18 23:37) Nausea Medications to take at Discharge Albuterol IH (ProAir) [Proair Hfa] 2 puff INHALATION Q6H PRN PRN 07/18/14 Hydrochlorothiazide 25 mg PO DAILY 07/18/14 Ibuprofen [Motrin] 800 mg PO TID PRN PRN 07/18/14 Metoprolol(XL)Succ [Toprol Xl (Beta Kyle)] 100 mg PO DAILY 07/18/14 Omeprazole [Prilosec] 20 mg PO BID 07/18/14 Zolpidem Tartrate [Ambien] 20 mg PO QHS 07/18/14 fentaNYL patch [Duragesic patch] 75 mcg TRANSDERM. Q72H 07/18/14 Folic Acid 800 mcg PO DAILY@0800 01/16/17 Potassium Chloride [K-Dur] 20 meq PO DAILY 01/16/17 proMETHazine tablet [Phenergan tablet] 25 mg PO Q6H PRN PRN #10 tab 01/17/17 Amlodipine [Norvasc] 10 mg PO DAILY 03/23/17 Ondansetron [Zofran] 8 mg PO Q8H PRN PRN 03/23/17 hydroxyzine HCl 50 mg tablet 50 mg PO TID-QID PRN 11/03/17 Clonazepam [Klonopin] 0.5 mg PO BID 02/23/18 Oxycodone 10 mg PO Q4H PRN PRN 02/24/18 Primary Care Physician: Linsey Medley MD [Primary Care Provider] - In 1 Week Proposed Discharge Date: 02/26/18
--- NOTE | 2018-02-26 12:32 | DS.PCM_ITS ---
Discharge Date and Diagnosis Date of Admission: 02/24/18 Date of Discharge: 02/26/18 - Secondary Discharge Diagnosis Chronic Problems (Last Reviewed 11/05/17 @ 16:06 by Cassie Trujillo) History of partial colectomy (Chronic) Lymphoma (Chronic) Mantle cell Insomnia (Chronic) Chronic pain disorder (Chronic) Hypertension (Chronic) Anxiety (Chronic) GERD (gastroesophageal reflux disease) (Chronic) Hospital Course and Treatment Imaging Results: 02/26/18 07:48 CT Chest [Chest WITH Contrast] [CT] Urgent Operations: None Summary of Care Provided: The patient is a 47 year old male patient with a significant past medical history of lymphoma. He was recently treated for pneumonia two weeks ago after having a routine follow up CT scan for his oncologist. he presented to the ED due to trouble breathing . He was noted to have temp of 102 at home and requires oxygen in the ED. she will have a leukocytosis of 17,000, his chest x- ray however did not reveal any infiltrates or consolidation. He was diagnosed with acute COPD exacerbation and admitted to the hospital for IV steroids, bronchodilator therapy and IV antibiotics. The patient improved significantly and currently does not require supplemental oxygen. 1. acute COPD exacerbation; the patient has improved and was discharged on good dilators, prednisone and PO antibiotic 2. Acute respiratory failure with hypoxia secondary to #1; he currently does not require supplemental oxygen. CT scan of the chest did not show any acute findings. 3. Gram-negative bacteremia; 1 out of 2 of his blood cultures on admission grew gram-negative rods, blood cultures were obtained. The patient is afebrile and he denied any systemic symptoms, he did not appear toxic. he does not want to wait in the hospital for final organism identification, he was discharged on p.o. Cipro 500 mg twice daily for 10 days and recommended to follow-up with her primary care doctor. 4. Hypertension ; this is controlled. 5. History of lymphoma currently in remission . 6. Leukocytosis; white count on admission was 17,000, it improved to 12,000 and today is 15,000 he is not febrile and lacks other systemic symptoms, most likely due to steroids. Physical exam at the time of discharge; 154/94, 98, 18, 97.5. He was alert and oriented to time place and person. He did not appear to be any form of distress. S1 and S2 heard no murmur or gallop Lung exam was clear to auscultation with no adventitious sounds. Abdomen was soft nontender with normal bowel sounds. extremity exam did not reveal any edema, palpable pulses bilaterally. Neurologic exam was grossly intact. Discharge Activity: Return to Normal Activity Call your doctor if your incision/area has: Continuous Slow Oozing Home Medications: Medications to take at Discharge Albuterol IH (ProAir) [Proair Hfa] 2 puff INHALATION Q6H PRN PRN 07/18/14 Hydrochlorothiazide 25 mg PO DAILY 07/18/14 Ibuprofen [Motrin] 800 mg PO TID PRN PRN 07/18/14 Metoprolol(XL)Succ [Toprol Xl (Beta Kyle)] 100 mg PO DAILY 07/18/14 Omeprazole [Prilosec] 20 mg PO BID 07/18/14 Zolpidem Tartrate [Ambien] 20 mg PO QHS 07/18/14 fentaNYL patch [Duragesic patch] 75 mcg TRANSDERM. Q72H 07/18/14 Folic Acid 800 mcg PO DAILY@0800 01/16/17 Potassium Chloride [K-Dur] 20 meq PO DAILY 01/16/17 proMETHazine tablet [Phenergan tablet] 25 mg PO Q6H PRN PRN #10 tab 01/17/17 Amlodipine [Norvasc] 10 mg PO DAILY 03/23/17 Ondansetron [Zofran] 8 mg PO Q8H PRN PRN 03/23/17 hydroxyzine HCl 50 mg tablet 50 mg PO TID-QID PRN 11/03/17 Clonazepam [Klonopin] 0.5 mg PO BID 02/23/18 Oxycodone 10 mg PO Q4H PRN PRN 02/24/18 Ciprofloxacin [Cipro] 500 mg PO BID 10 Days tab 02/26/18 Prednisone [Deltasone] 40 mg PO DAILY #5 tab 02/26/18 Following Prescrptions Were Given to Patient: Prednisone [Deltasone] 40 mg PO DAILY #5 tab Ciprofloxacin [Cipro] 500 mg PO BID 10 Days tab Primary Care Physician: Linsey Medley MD [Primary Care Provider] - In 1 Week Medical Necessity - Tobacco Use Smoking Status: Former smoker Meaningful Use Info Meaningful Use Diagnoses (Choose all that apply): None applicable Code Visit Inpatient E&M: 88470 Disch Hosp
== END 2018-02-26 13:11 | disposition home or self-care (01) | DRG 190 ==
LOC: ED 02-24 00:20 → MS3 02-24 02:23
PROVIDERS: Admitting Provider Family Medicine; Emergency Provider Emergency Medicine; Family Provider Internal Medicine; PCP Internal Medicine; Visit Provider Internal Medicine
DX: J44.1 Chronic obstructive pulmonary disease with (acute) exacerbation (principal); J96.01 Acute respiratory failure with hypoxia; C83.10 Mantle cell lymphoma, unspecified site; R78.81 Bacteremia; Z90.49 Acquired absence of other specified parts of digestive tract; G47.00 Insomnia, unspecified; G89.29 Other chronic pain; F41.9 Anxiety disorder, unspecified; K21.9 Gastro-esophageal reflux disease without esophagitis; B96.89 Other specified bacterial agents as the cause of diseases classified elsewhere; I10 Essential (primary) hypertension; D72.829 Elevated white blood cell count, unspecified; Z79.899 Other long term (current) drug therapy; Z87.891 Personal history of nicotine dependence
CPT/HCPCS: 36415; 71046; 71260; 80048; 80053; 83605; 85025; 87040; 87076; 93005; 94640; 97802; 99285; J7030; J7040; Q9967; A4216; J2405

== ENCOUNTER 2018-03-19 12:24 | Emergency (ER) | payer OTHER, MEDICARE, SELFPAY ==
[2018-03-19 12:24] VITALS: BP 130/70; PULSE 74; RESP 18; TEMP 36.6; O2SAT 98; BMI 28.7
--- NOTE | 2018-03-19 12:38 | RAD_ITS ---
STUDY: X-RAY - RIGHT ELBOW REASON FOR EXAM: Male, 47 years old. Laceration following a fall. TECHNIQUE: 3 view(s) of the elbow. COMPARISON: None. FINDINGS: Normal visualized humerus, radius and ulna. Normal radiocapitellar and ulnotrochlear articulations. Soft tissue laceration overlying the dorsal aspect of the proximal ulna. Several radiopacities are seen in keeping with the foreign bodies. The largest measures 3.7 mm and lies along the medial aspect of the proximal ulna. RAD/Elbow min 3 Views IMPRESSION: Soft tissue laceration in the several small radial vague foreign bodies. The largest measures 3.7 mm. This is located medial to the proximal ulnar shaft. Electronically Signed: Matthias Hernandez MD at 13:00 EDT Tel [phone], Service support ,
[2018-03-19] MEDS: Diphth,Pertuss(Acell),Tet Vac 0.5 ML Vial IM (12:50)
--- NOTE | 2018-03-19 15:30 | ED.VISSUMM ---
- ER Visit Summary Date of Service: 03/19/18 Chief Complaint: [Injury right elbow] History of Present Illness: The patient is a 47 M [presents to the emergency department with complaint of injury to his right elbow that occurred about 10 minutes ago. Patient states that he slipped on a railroad tie and fell onto some glass with his right elbow. Patient states that he was plucking glass out of his wounds and comes in now for evaluation. Patient unsure of his last tetanus. Patient is right-hand dominant. Patient denies any other injuries.] Physical Examination: [HEENT-PERRLA, EOMI. Cranial nerves II through XII grossly intact. TMs clear. Mucous membranes moist. No adenopathy. Cardiovascular-regular rate and rhythm without murmur or ectopy Lungs-clear to auscultation, chest wall stable without crepitus or subcu emphysema Abdomen-normoactive bowel sounds, soft, nontender, no rebound or rigidity, no peritoneal signs. Extremities-intact ?4, normal range of motion, normal pulses. Right elbow-patient has a 2 cm laceration and multiple smaller lacerations noted over the area of the right elbow. Patient has some mild diffuse bony tenderness on exam and some mild discomfort with range of motion although he does have full range of motion. Patient neurovascular intact distally. Total length of all lacerations combined about 4 cm. Test Results: [X-rays of the right elbow obtained showed no fractures however he was noted to have multiple punctate foreign bodies in the soft tissue. Emergency Department Course and Treatment: [Laceration repair-wound sterilely draped and prepped. Wound anesthetized locally with 1% lidocaine total 6 cc. Wound cleansed with Shur-Clens and irrigated with copious saline. Using splinter forceps I was able to remove the 2 large foreign bodies which were pieces of glass from 1 of the smaller wounds. No other foreign bodies were able to be found within the soft tissues of the other lacerations. Using 5-0 nylon a total of 6 single interrupted sutures placed to approximate wound edges of all lacerations combined. Patient tolerated procedure well. Clean dressing was applied. Patient was given Keflex 500 mill grams p.o.] Treatment Plan: [Patient will be treated with Keflex Disposition: [Discharged home in stable condition. Patient advised to follow-up with Dr. Saenz for suture removal in 10 days. Patient to return if increasing pain, redness, swelling, or condition should worsen in any way. Patient understands he may have some residual small punctate foreign bodies that we may not be able to completely removed.] Impression: [Right elbow contusion Right elbow lacerations total length 4 cm with simple repair] This note was generated with [employer] dictation software. It may contain incorrect words, spelling, and punctuation that were not noted in review of the chart prior to signing ED Disposition - Plan for ED Patient: Chief Complaint: Laceration Referrals: Linsey Medley MD [Primary Care Provider] -
--- NOTE | 2018-03-19 15:34 | ED.DCSUM_ITS ---
- ER Visit Summary Date of Service: 03/19/18 Chief Complaint: [Injury right elbow] History of Present Illness: The patient is a 47 M [presents to the emergency department with complaint of injury to his right elbow that occurred about 10 minutes ago. Patient states that he slipped on a railroad tie and fell onto some glass with his right elbow. Patient states that he was plucking glass out of his wounds and comes in now for evaluation. Patient unsure of his last tetanus. Patient is right-hand dominant. Patient denies any other injuries.] Physical Examination: [HEENT-PERRLA, EOMI. Cranial nerves II through XII grossly intact. TMs clear. Mucous membranes moist. No adenopathy. Cardiovascular-regular rate and rhythm without murmur or ectopy Lungs-clear to auscultation, chest wall stable without crepitus or subcu emphysema Abdomen-normoactive bowel sounds, soft, nontender, no rebound or rigidity, no peritoneal signs. Extremities-intact ?4, normal range of motion, normal pulses. Right elbow- patient has a 2 cm laceration and multiple smaller lacerations noted over the area of the right elbow. Patient has some mild diffuse bony tenderness on exam and some mild discomfort with range of motion although he does have full range of motion. Patient neurovascular intact distally. Total length of all lacerations combined about 4 cm. Test Results: [X-rays of the right elbow obtained showed no fractures however he was noted to have multiple punctate foreign bodies in the soft tissue. Emergency Department Course and Treatment: [Laceration repair-wound sterilely draped and prepped. Wound anesthetized locally with 1% lidocaine total 6 cc. Wound cleansed with Shur-Clens and irrigated with copious saline. Using splinter forceps I was able to remove the 2 large foreign bodies which were pieces of glass from 1 of the smaller wounds. No other foreign bodies were able to be found within the soft tissues of the other lacerations. Using 5-0 nylon a total of 6 single interrupted sutures placed to approximate wound edges of all lacerations combined. Patient tolerated procedure well. Clean dressing was applied. Patient was given Keflex 500 mill grams p.o.] Treatment Plan: [Patient will be treated with Keflex Disposition: [Discharged home in stable condition. Patient advised to follow- up with Dr. Saenz for suture removal in 10 days. Patient to return if increasing pain, redness, swelling, or condition should worsen in any way. Patient understands he may have some residual small punctate foreign bodies that we may not be able to completely removed.] Impression: [Right elbow contusion Right elbow lacerations total length 4 cm with simple repair] This note was generated with [employer] dictation software. It may contain incorrect words, spelling, and punctuation that were not noted in review of the chart prior to signing ED Disposition - Plan for ED Patient: Chief Complaint: Laceration Referrals: Linsey Medley MD [Primary Care Provider] -
--- NOTE | 2018-03-19 15:34 | ED.DEP ---
ED Disposition - Plan for ED Patient: Chief Complaint: Laceration Instructions: ED Laceration Ext Sutr Stap Tape, ED Contusion Elbow Prescriptions: Cephalexin [Keflex] 500 mg PO Q6 #40 cap Referrals: Linsey Medley MD [Primary Care Provider] - 10 Day for suture removal
[2018-03-19 15:43] VITALS: BP 121/79
[2018-03-19] MEDS: Cephalexin 250 MG Capsule 500 MG PO (15:47)
== END 2018-03-19 15:50 | disposition home or self-care (01) ==
PROVIDERS: Emergency Provider Emergency Medicine; Family Provider Internal Medicine; PCP Internal Medicine
DX: S51.021A Laceration with foreign body of right elbow, initial encounter (principal); S50.01XA Contusion of right elbow, initial encounter; W18.09XA Striking against other object with subsequent fall, initial encounter; Y93.9 Activity, unspecified; Y92.9 Unspecified place or not applicable; C85.90 Non-Hodgkin lymphoma, unspecified, unspecified site; Z79.899 Other long term (current) drug therapy; Z72.0 Tobacco use
CPT/HCPCS: 12002; 73080; 90471; 90715; 99283

== ENCOUNTER 2018-07-29 17:10 | Emergency (ER) | payer OTHER, MEDICARE, SELFPAY ==
[2018-07-29 17:11] VITALS: BP 139/90; PULSE 88; RESP 16; TEMP 36.1; BMI 29.2
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
[2018-07-29 19:34] VITALS: BP 132/75; PULSE 71; RESP 16; O2SAT 98
== END 2018-07-29 19:35 | disposition home or self-care (01) ==
LOC: ED 17:41
PROVIDERS: Emergency Provider Emergency Medicine; Family Provider Internal Medicine; PCP Internal Medicine
DX: S06.0X0A Concussion without loss of consciousness, initial encounter (principal); S16.1XXA Strain of muscle, fascia and tendon at neck level, initial encounter; S29.012A Strain of muscle and tendon of back wall of thorax, initial encounter; S46.911A Strain of unspecified muscle, fascia and tendon at shoulder and upper arm level, right arm, initial encounter; S76.011A Strain of muscle, fascia and tendon of right hip, initial encounter; S50.01XA Contusion of right elbow, initial encounter; V23.9XXA Unspecified motorcycle rider injured in collision with car, pick-up truck or van in traffic accident, initial encounter; Y93.I9 Activity, other involving external motion; F17.210 Nicotine dependence, cigarettes, uncomplicated; Z79.899 Other long term (current) drug therapy
CPT/HCPCS: 70450; 71046; 72072; 72125; 72170; 73030; 73080; 99282

== ENCOUNTER 2019-09-15 16:55 | Inpatient (IN) | payer MEDICARE, SELFPAY ==
[2019-09-15] VITALS (11 sets, daily range): BP systolic 126–153; BP diastolic 73–98; PULSE 92–106; RESP 18–27; TEMP 37.3–37.7; O2SAT 87–97; BMI 28.7; BMI 28.6; BMI 27.8
--- NOTE | 2019-09-15 17:06 | EKG12_ITS ---
Test Reason : CP/SOB Blood Pressure : / mmHG Vent. Rate : 104 BPM Atrial Rate : 104 BPM P-R Int : 150 ms QRS Dur : 080 ms QT Int : 402 ms P-R-T Axes : 046 003 055 degrees QTc Int : 528 ms Sinus tachycardia Nonspecific ST abnormality Prolonged QT Abnormal ECG Confirmed by AUGUSTIN SINGH, SRIKANTH ([id number]), editor managing director JAH REECE ([id number] on 09/20/2019 12:48:42 PM Referred By: Dominugez Pepper Confirmed By:MARRY RUFFIN MD
--- NOTE | 2019-09-15 17:10 | RAD_ITS ---
STUDY: X-RAY CHEST REASON FOR EXAM: Male, 49 years old. Shortness of breath TECHNIQUE: AP COMPARISON: 07/29/2018 FINDINGS: EKG leads project over the chest. The lungs are clear and expanded. There is no demonstrated pleural abnormality. Normal size heart. Normal mediastinum and melva. Normal visualized pulmonary arteries. Normal visualized aortic arch and descending thoracic aorta. Normal visualized thoracic spine. Normal visualized ribs, clavicles, and shoulders. There is no demonstrated abnormality of the visualized soft tissue structures of the upper abdomen. RAD/Chest 1 View (Portable) IMPRESSION: Stable, nonacute portable x-ray examination of the chest. Electronically Signed: Neo Ramsey MD (Brooks) at 17:32 EST , Service support ,
--- NOTE | 2019-09-15 17:11 | ED.VISSUMM ---
- ER Visit Summary Date of Service: 09/15/19 Chief Complaint: Shortness of breath History of Present Illness: The patient is a 49 M presenting with shortness of breath, cough. Patient has been feeling ill since last . He states he has been progressively worsening. He has had subjective fever and chills. He has had nonproductive cough and shortness of breath. He has had nausea and vomiting. He denies diarrhea or constipation. Denies abdominal pain. He has had myalgias. He has a mild headache. Denies neck pain. He did not receive a flu shot this year. He tried a breathing treatment at home with some improvement. He has chest pain with cough. Denies other complaints. Physical Examination: Vitals are stable. Temperature 99.9. Pulse 106. Respiratory rate 26. Pulse ox 87% on room air. HEENT exam dry mucous membranes Neck is supple. No meningismus Lungs are wheezing bilaterally. Heart is regular tachycardic Abdomen is soft nontender nondistended. No guarding or rebound Extremities are unremarkable. Skin is warm and dry. No rash No focal neurologic deficit. Remainder of exam is unremarkable. Emergency Department Course and Treatment: Patient was given IV fluids, Zofran, Tylenol. He is given albuterol, Atrovent aerosols. EKG is sinus tachycardia rate of 104. CBC shows white count 29.7. Chemistries show potassium 3.2, glucose 115, BUN 26, creatinine 2.03. Previous creatinine 1.46. Lactic acid 1.7. Troponin is negative. Chest x-ray shows stable, nonacute portable x-ray examination of the chest. Influenza negative. He was given Solu-Medrol, Levaquin IV. Discussed with the hospitalist for admission. Disposition: Admission Impression: COPD exacerbation, hypoxia, leukocytosis This note was generated with brettapproved dictation software. It may contain incorrect words, spelling, and punctuation that were not noted in review of the chart prior to signing ED Disposition - Plan for ED Patient: Referrals: Linsey Medley MD [Primary Care Provider] -
[2019-09-15] MEDS: Ipratropium/Albuterol Sulfate 3 ML AMPUL.NEB INHALATION ×2 (17:16→22:33)
[2019-09-15 17:18] LABS: Absolute Lymphocyte Count 2.42 X10^3/uL (0.83-4.51); Absolute Neutrophil Count 24.6 X10^3/uL (2.0-7.7); Basophil# 0.09 X10^3/uL; Basophil% 0.3 % (0-1); Eosinophil# 0.31 X10^3/uL; Hematocrit 49.7 % (40-54); Hemoglobin 16.7 g/dL (13.0-16.5); Lymphocyte # 2.42 X10^3/ul (4.0); Lymphocyte % 8.1 % (19-41); Mean Corp Hgb Conc 33.6 g/dL (32-36); Mean Corpuscular Hgb 29.9 pg (27.0-32.0); Mean Corpuscular Volume 88.9 fL (80-94); Mean Platelet Vol. 10.8 fl (6.2-12.0); Monocyte# 2.05 X10^3/uL; Monocyte% 6.9 % (0-10); NRBC Flagged by Analyzer 0 % (0-5); Neutrophil % 82.8 % (47-70); POSITIVE DIFFERENTIAL YES; Platelet Count 301 K/mm3 (150-450); RBC Distribution Width CV 12.3 % (11.6-14.6); RBC Distribution Width SD 40.1 fl (35.1-43.9); Red Blood Count 5.59 M/mm3 (4.6-6.2); White Blood Count 29.7 K/mm3 (4.4-11.0)
[2019-09-15] MEDS: 0.9% Normal Saline 1,000 ML 1000 ML IV (17:21)
[2019-09-15] MEDS: Ondansetron 4 MG/2 ML Vial IV (17:21)
[2019-09-15 17:33] LABS: Differential Indicated SCAN CRITERIA MET
[2019-09-15 17:45] LABS: Anion Gap 6 (5-15); BUN 26 mg/dL (7-18); BUN/Creat Ratio 12.8 RATIO (10-20); Chloride 102 mmol/L (98-107); Creatinine, Serum 2.03 mg/dL (0.70-1.30); EST Glomerular Filtration Rate 37 mL/min (>60); Est Glom Filt Rate - Afr Amer 45 mL/min (>60); Estimated Creatinine Clearance 48.65 ml/min; Glucose 115 mg/dL (74-106); Potassium 3.2 mmol/L (3.5-5.1); Sodium Level 138 mmol/L (136-145)
[2019-09-15] MEDS: Albuterol 2.5 MG/3 ML VIAL.NEB. INHALATION ×2 (17:45→18:46)
[2019-09-15 17:48] LABS: Differential Comment SCANNED
[2019-09-15 17:51] LABS: Lactic Acid 1.7 mmol/L (0.4-1.9)
[2019-09-15] MEDS: Acetaminophen 500 MG Tablet 1000 MG PO (17:56)
[2019-09-15] MEDS: oxyCODONE 5 MG Tablet 10 MG PO (18:20)
[2019-09-15] MEDS: levoFLOXacin IV 750 MG/150 ML BAG 100 MG IV (18:37)
[2019-09-15] MEDS: MethylPREDNISolone 125 MG/2 ML Vial IV (18:37)
--- NOTE | 2019-09-15 19:46 | PCM.HP.STD ---
Problem List (1) COPD exacerbation Status: Acute (2) Acute bronchitis Status: Acute (3) History of partial colectomy Status: Chronic (4) S/P colonoscopy Status: Acute (5) H/O removal of cyst Status: Acute Comment: Chest (6) Lymphoma Status: Chronic Comment: Mantle cell (7) Insomnia Status: Chronic (8) Chronic pain disorder Status: Chronic (9) Nausea Status: Resolved (10) Hypertension Status: Chronic (11) Anxiety Status: Chronic (12) GERD (gastroesophageal reflux disease) Status: Chronic (13) COPD (chronic obstructive pulmonary disease) Status: Acute Qualifiers: COPD type: unspecified COPD Qualified Code(s): J44.9 - Chronic obstructive pulmonary disease, unspecified (14) Marijuana use Status: Suspected (15) Tobacco dependence Status: Resolved History of Present Illness Date of Admission: 09/15/19 Chief Complaint: Shortness of breath for 4 to 5 days The patient is a 49 year old M with history of COPD, current smoker about half pack per day came to ER with aggressive worsening of shortness of breath, cough for last 4 days. Patient also had fever chills. Fever started today. Patient has mainly dry cough, wheezing and shortness of breath at rest getting worse on exertion. Patient also complaining of chest pain which he states because of panic attack at the age history of anxiety, chronic pain mainly musculoskeletal follows pain management Dr. Markham on fentanyl patch. Patient also history of non-Hodgkin's lymphoma and has been in remission since 2016. Recently saw Dr. Marquez last week and was told initially is in remission. [] In ED, patient was found febrile temperature 99.9 ?F, heart rate 101 respiratory 24 and pulse ox 87% on room air and 95% on 3 L of oxygen. Basic labs shows leukocytosis 30,000 with neutrophil 82.8%, lymphocyte 8.1. Previous WBC was 15.8 thousand in January 2018. K3.2. BUN/creatinine 26/2.03 increased from 21/1.46 in January 2018. Portable chest x-ray reported as nonacute and stable. Patient is started on IV antibiotic Levaquin in ED. EKG shows sinus tachycardia at [address]-T changes. QTc 528 ms. Past Medical History Past Medical History (Chronic Problems): Chronic Problems (Last Reviewed 11/05/17 @ 16:06 by Cassie Trujillo) History of partial colectomy (Chronic) Lymphoma (Chronic) Mantle cell Insomnia (Chronic) Chronic pain disorder (Chronic) Hypertension (Chronic) Anxiety (Chronic) GERD (gastroesophageal reflux disease) (Chronic) Medical History: Medical History (Last Reviewed 11/05/17 @ 16:06 by Cassie Trujillo) Lymphoma (Chronic) C85.90 Mantle cell Insomnia (Chronic) G47.00 Chronic pain disorder (Chronic) G89.4 Nausea (Resolved) R11.0 Hypertension (Chronic) I10 Anxiety (Chronic) F41.9 GERD (gastroesophageal reflux disease) (Chronic) K21.9 COPD (chronic obstructive pulmonary disease) (Acute) J44.9 Marijuana use (Suspected) F12.10 Tobacco dependence (Resolved) F17.200 Allergies hydrocodone bitartrate [From Vicodin] Adverse Reaction (Verified 09/15/19 17:02) Nausea Home Medications: Ambulatory Orders Medication Instructions Recorded Albuterol IH (ProAir) [Proair Hfa] 2 puff INHALATION Q6H PRN PRN 07/18/14 Ibuprofen [Motrin] 800 mg PO TID PRN PRN 07/18/14 Metoprolol(XL)Succ [Toprol Xl 100 mg PO DAILY 07/18/14 (Beta Kyle)] Omeprazole [Prilosec] 20 mg PO BID 07/18/14 Zolpidem Tartrate [Ambien] 20 mg PO QHS 07/18/14 fentaNYL patch [Duragesic patch] 75 mcg TRANSDERM. Q72H 07/18/14 Potassium Chloride [K-Dur] 20 meq PO DAILY 01/16/17 proMETHazine tablet [Phenergan 25 mg PO Q6H PRN PRN #10 tab 01/17/17 tablet] Amlodipine [Norvasc] 10 mg PO DAILY 03/23/17 Ondansetron [Zofran] 8 mg PO Q8H PRN PRN 03/23/17 Clonazepam [Klonopin] 0.5 mg PO BID 02/23/18 Folic Acid 0.8 mg PO DAILY 09/15/19 Hydrochlorothiazide [Hctz] 25 mg PO DAILY 09/15/19 Hydroxyzine HCl 25 mg PO DAILY 09/15/19 Oxycodone HCl 10 mg PO TID 09/15/19 buPROPion XL [Wellbutrin Xl] 150 mg PO DAILY 09/15/19 Surgical History: Surgical History (Last Reviewed 11/05/17 @ 16:06 by Cassie Trujillo) History of partial colectomy (Chronic) Z98.890, Z90.49 S/P colonoscopy (Acute) Z98.890 H/O removal of cyst (Acute) Z98.890 Chest Surgical History: - - Bowel resection secondary to diverticulitis, hernia repair. Psychiatric History: Anxiety Smoking Status: Current every day smoker Tobacco Use: Cigarettes - *Family History Maternal Family History: Family History (Last Reviewed 11/05/17 @ 16:06 by Cassie Trujillo) Mother No problems noted. History Items: No pertinent history Paternal Family History: Family History (Last Reviewed 11/05/17 @ 16:06 by Cassie Trujillo) Mother No problems noted. History Items: Diabetes, Hypertension Review of Systems Constitutional: Reports: Chills, Fever, Weakness HEENT: Reports: Nasal Congestion, Post Nasal Drip, Sinus Congestion, Sinus Drainage. Denies: Head Aches Cardiovascular: Reports: Chest Pain. Denies: Palpitations Respiratory: Reports: Cough, Pleuritic Pain, Shortness of Breath, Shortness of breath at rest, Shortness of breath upon exertion, Wheezing. Denies: Sputum production Gastrointestinal: Denies: Abdominal Pain, Nausea, Vomiting Genitourinary: Denies: Dysuria Musculoskeletal: Denies: Joint Pain, Joint Tenderness Skin: Denies: Rash, Wounds Neurological: Reports: Balance problems. Denies: Focal weakness, Numbness, Tingling Psychiatric: Denies: Anxiety, Depression, Homicidal Ideations, Suicidal Ideations Hematologic/ Lymphatic: Denies: Easy Bruising, Easy Bleeding VTE Information - Inpt Only VTE Present on Admission: No VTE Pharm Prophylaxis ordered?: Yes Patient Problems: Active and Suspected Problems (Last Reviewed 11/05/17 @ 16:06 by Cassie Trujillo) COPD exacerbation (Acute) Acute bronchitis (Acute) - Physical Exam Vitals/I&O's: Vital Signs Temp Pulse Resp BP Pulse Ox 99.9 F H 97 18 138/96 H 97 09/15/19 18:00 09/15/19 18:47 09/15/19 18:47 09/15/19 18:41 09/15/19 18:41 Oxygen Flow Rate (L/min) 3 Oxygen Delivery Method Nasal Cannula Weight: 217 lb 2.485 oz Body Mass Index (BMI) 28.6 Intake and Output for Last 24 Hours 09/13/19 09/14/19 09/15/19 23:59 23:59 23:59 Intake Total 1000 / 999 Balance 1000 / 1000 General: Alert, Oriented x3, Cooperative HEENT: Atraumatic, PERRLA, EOMI, Normocephalic Oral: Dry Mucosa Neck: Supple, No JVD, Negative Carotid Bruits Lungs: Diminished, Rhonchi, Short of Breath, Tachypneic, Wheezes Cardiovascular: Regular rate, Regular Rhythm, Normal S1, Normal S2, No murmurs Abdomen: Bowel Sounds Present, Soft, Non Tender, Non-Distended Extremities: No edema, Capillary Refill Less than 3 Seconds Skin: No rashes, No breakdown Musculoskeletal: No Tenderness to Palpation of Joints or Extremities, Arthritic Changes Lymphatic: No Cervical, Supraclavicular, or Inguinal Adenopathy Neurological: Cranial nerves II-XII grossly intact, Deep Tendon Reflexes 2+/4 and Symmetrical, Neuro grossly intact Psych/Mental Status: Normal Affect, Appropriate Microbiology Past 72 Hours 09/15/19 17:21 Mucosa - Nasopharyngeal Influenza Types A,B Direct FA (MAGGIE) - Final Laboratory Results 09/15/19 17:03: WBC 29.7 H, RBC 5.59, Hgb 16.7 H, Hct 49.7, MCV 88.9, MCH 29.9, MCHC 33.6, RDW Std Deviation 40.1, RDW Coeff of [place] 12.3, Plt Count 301, MPV 10.8, Immature Gran % (Auto) 0.900, Neut % (Auto) 82.8 H, Lymph % (Auto) 8.1 L, [place] % (Auto) 6.9, Eos % (Auto) 1.0, Baso % (Auto) 0.3, Absolute Neuts (auto) 24.6 H, Absolute Lymphs (auto) 2.42, Nucleated RBC % 0, Differential Comment SCANNED, Diff Path Review January09/15/19 17:03: Sodium 138, Potassium 3.2 L, Chloride 102, Carbon Dioxide 30.0, Anion Gap 6, BUN 26 H, Creatinine 2.03 H, Estim Creat Clear Calc 48.65, Est GFR (MDRD) Af Amer 45 L, Est GFR (MDRD) Non-Af 37 L, BUN/Creatinine Ratio 12.8, Glucose 115 H, Calcium 9.0, Troponin I < 0.015 09/15/19 17:03: Lactic Acid 1.7 Current Medications Levofloxacin (Levaquin Iv) 750 mg in 150 mls @ 100 mls/hr IV X1 ONE Stop: 09/15/19 19:58 Last Admin: 09/15/19 18:37 Dose: 100 mls/hr Documented by: Sodium Chloride () 10 - 40 ml IV UD PRN PRN Reason: SALINE FLUSH Assessment/Plan All Active Problems (Last Reviewed 11/05/17 @ 16:06 by Cassie Trujillo) COPD exacerbation (Acute) Acute bronchitis (Acute) S/P colonoscopy (Acute) H/O removal of cyst (Acute) Nausea (Resolved) COPD (chronic obstructive pulmonary disease) (Acute) Tobacco dependence (Resolved) Hodgkin lymphoma (Resolved) The patient is a 49 year old M with history of COPD, current smoker about half pack per day came to ER with aggressive worsening of shortness of breath, cough for last 4 days. Patient also had fever chills. Fever started today. Patient has mainly dry cough, wheezing and shortness of breath at rest getting worse on exertion. Portable chest x-ray reported as nonacute and stable. Patient is started on IV antibiotic Levaquin in ED. 1. Acute hypoxic respiratory insufficiency/secondary to COPD exacerbation with acute bronchitis: Patient is being admitted on MedSurg floor. On oxygen therapy. Chest x-ray reported nonacute but is portable. Started on IV Rocephin and doxycycline as as QTC is 528 ms therefore Levaquin and Zithromax are elective contraindication. On IV Solu-Medrol, DuoNeb every 4 hourly, albuterol as needed, incentive spirometry, chest physiotherapy and maintain bronchopulmonary hygiene. Patient is chronic smoker advised quitting. 2. SIRS ( temperature 99.9 ?F, heart rate 101 respiratory 24 and pulse ox 87% on room air and 95% on 3 L of oxygen and leukocytosis) most likely from acute bronchitis but clinically suspicion of pneumonia: Started on antibiotics. Pneumonia work-up including sputum culture, blood cultures x2, respiratory panel, MRSA nasal screen and urinary antigens ordered. Initial influenza test are negative. Lactic acid normal. 3. Atypical chest pain mostly pleuritic/panic attack: EKG shows sinus tachycardia at [address]-T changes. QTc 528 ms. Prolonged QTc interval. Troponin is normal. As per the patient he has known history of panic attack. 4. Hypertension: Blood pressure is controlled 5. Non-Hodgkin's lymphoma in remission since 2016. Patient also history of non-Hodgkin's lymphoma and has been in remission since 2016. Recently saw Dr. Marquez last week and was told initially is in remission. Patient has leukocytosis probably from acute infection or maybe basal increased leukocytosis from initial but lymphocyte count is low. No recent CBC in our system. Patient had leukocytosis during previous admission in January 2018 for acute COPD exacerbation 6. Other chronic comorbidities include chronic smoker, nicotine dependence, anxiety, insomnia, chronic pain disorder and history of partial colectomy: Stable. On nicotine patch. Microbiology Past 72 Hours 09/15/19 17:21 Mucosa - Nasopharyngeal Influenza Types A,B Direct FA (MAGGIE) - Final Laboratory Results 09/15/19 17:03: WBC 29.7 H, RBC 5.59, Hgb 16.7 H, Hct 49.7, MCV 88.9, MCH 29.9, MCHC 33.6, RDW Std Deviation 40.1, RDW Coeff of [place] 12.3, Plt Count 301, MPV 10.8, Immature Gran % (Auto) 0.900, Neut % (Auto) 82.8 H, Lymph % (Auto) 8.1 L, [place] % (Auto) 6.9, Eos % (Auto) 1.0, Baso % (Auto) 0.3, Absolute Neuts (auto) 24.6 H, Absolute Lymphs (auto) 2.42, Nucleated RBC % 0, Differential Comment SCANNED, Diff Path Review January09/15/19 17:03: Sodium 138, Potassium 3.2 L, Chloride 102, Carbon Dioxide 30.0, Anion Gap 6, BUN 26 H, Creatinine 2.03 H, Estim Creat Clear Calc 48.65, Est GFR (MDRD) Af Amer 45 L, Est GFR (MDRD) Non-Af 37 L, BUN/Creatinine Ratio 12.8, Glucose 115 H, Calcium 9.0, Troponin I < 0.015 09/15/19 17:03: Lactic Acid 1.7 09/15/19 17:03: APTT 34.2 12/18/19 17:03: Magnesium 1.7 Clinical Impression(s) from Imaging Studies Chest X-Ray 09/15/19 17:10 IMPRESSION: Stable, nonacute portable x-ray examination of the chest. Code Visit Inpatient E&M: 82426 Init Hosp L3
[2019-09-15 20:17] LABS: Partial Thromboplast Time 34.2 Seconds (24.1-36.2)
[2019-09-15 20:49] LABS: Magnesium 1.7 mg/dL (1.6-2.6)
[2019-09-15] MEDS: Enoxaparin 40 MG/0.4 ML Syringe SC (21:48)
[2019-09-15] MEDS: guaiFENesin 1,200 MG Tablet 1200 MG PO (21:49)
[2019-09-15] MEDS: 0.9% Normal Saline 1,000 ML 75 ML IV (21:49)
[2019-09-15] MEDS: Doxycycline 100 MG CAPSULE PO (21:56)
[2019-09-15 22:03] LABS: Bacteria 0 SEEN /hpf (None Seen); Mucous, Urine 0 SEEN /hpf (<or=2+); Red Blood Cells-Urine 0 SEEN /hpf (0-5); Squamous Epithelial Cells - UA 0 SEEN /hpf (0-5); White Blood Cells 0 SEEN /hpf (0-5)
[2019-09-15 22:12] LABS: Color, Urine Yellow (Yellow); Glucose, Dipstick Normal (Normal); Ketone-Dipstick Negative (Negative); Leukocyte Esterase-Dipstick Negative /ul (Negative); Nitrite-Dipstick Negative (Negative); Occult Blood-Urine Negative /ul (Negative); Protein-Dipstick Negative (Negative); Urine Bilirubin Dipstick Negative (Negative); Urine Clarity Clear (Clear); Urine Urobilinogen Normal (Normal)
[2019-09-16] VITALS (16 sets, daily range): BP systolic 131–142; BP diastolic 76–86; PULSE 74–94; RESP 18; TEMP 36.4–36.6; O2SAT 92–94
[2019-09-16] MEDS: Zolpidem Tartrate 5 MG Tablet 20 MG PO ×2 (00:20→22:23)
--- NOTE | 2019-09-16 02:19 | CPS ---
PT DOES NOT WEAR BIPAP OR CPAP AT HOME
[2019-09-16] MEDS: Ipratropium/Albuterol Sulfate 3 ML AMPUL.NEB INHALATION ×3 (05:27→22:48)
[2019-09-16] MEDS: oxyCODONE 5 MG Tablet 10 MG PO ×4 (05:44→22:08)
--- NOTE | 2019-09-16 05:55 | EKG12_ITS ---
Test Reason : AM EKG Blood Pressure : / mmHG Vent. Rate : 080 BPM Atrial Rate : 080 BPM P-R Int : 160 ms QRS Dur : 086 ms QT Int : 424 ms P-R-T Axes : 037 004 011 degrees QTc Int : 489 ms Normal sinus rhythm Prolonged QT Abnormal ECG When compared with ECG of 16-SEP-2019 05:29, MANUAL COMPARISON REQUIRED, DATA IS UNCONFIRMED Confirmed by WILLA SINGH, MIREYA ([id number]), copy editor LESLIE SANTOS ([id number]) on 09/21/2019 9:49:51 AM Referred By: Dominguez Pepper Confirmed By:MIREYA CROUCH MD
[2019-09-16] MEDS: CLARIFY ORDER 1 EACH NOTE (06:09)
[2019-09-16 06:45] LABS: Absolute Lymphocyte Count 1.26 X10^3/uL (0.83-4.51); Absolute Neutrophil Count 22.9 X10^3/uL (2.0-7.7); Basophil# 0.03 X10^3/uL; Basophil% 0.1 % (0-1); Hematocrit 42.1 % (40-54); Hemoglobin 14.3 g/dL (13.0-16.5); Lymphocyte # 1.26 X10^3/ul (4.0); Lymphocyte % 5.1 % (19-41); Mean Corpuscular Volume 88.3 fL (80-94); Mean Platelet Vol. 11.1 fl (6.2-12.0); Monocyte% 1.2 % (0-10); NRBC Flagged by Analyzer 0 % (0-5); Neutrophil # 22.92 X10^3/uL (2.7-7.7); Neutrophil % 92.6 % (47-70); POSITIVE DIFFERENTIAL YES; Platelet Count 223 K/mm3 (150-450); RBC Distribution Width CV 12.5 % (11.6-14.6); RBC Distribution Width SD 40.8 fl (35.1-43.9); Red Blood Count 4.77 M/mm3 (4.6-6.2); White Blood Count 24.8 K/mm3 (4.4-11.0)
[2019-09-16 06:53] LABS: Differential Indicated SCAN CRITERIA MET
[2019-09-16 06:56] LABS: International Normalized Ratio 1.1; Prothrombin Time (Protime)PT. 13.5 SECONDS (11.7-14.9)
[2019-09-16 07:10] LABS: AST(SGOT) 14 U/L (15-37); Alanine Aminotransfer ALT/SGPT 27 U/L (16-61); Albumin, Serum 3.3 g/dL (3.2-5.0); Alkaline Phosphatase 124 U/L (45-117); Bilirubin, Direct 0.09 mg/dL (0.00-0.30); Globulin 3.7 g/dL (2.2-4.2); Thyroid Stim Hormone (TSH) 0.21 uIU/mL (0.358-3.74)
[2019-09-16 07:30] LABS: M R Staph aureus DNA By PCR Negative (Negative); Probe Check PASS; Specimen Processing Control PASS
--- NOTE | 2019-09-16 07:50 | RAD_ITS ---
STUDY: X-RAY CHEST REASON FOR EXAM: Male, 49 years old. Shortness of breath. TECHNIQUE: PA and lateral views of the chest. COMPARISON: Comparison is made with prior study dated September 15, 2019. FINDINGS: EKG electrodes are seen. The lungs are clear and expanded. There is no demonstrated pleural abnormality. Normal size heart. Normal mediastinum and melva. Normal visualized pulmonary arteries. Normal visualized aortic arch and descending thoracic aorta. Normal visualized thoracic spine. Normal visualized ribs, clavicles, and shoulders. There is no demonstrated abnormality of the visualized soft tissue structures of the upper abdomen. RAD/Chest PA and Lateral IMPRESSION: Normal x-ray examination of the chest. Electronically Signed: Matthias Hernandez, at 12:16 EST , Service support ,
--- NOTE | 2019-09-16 09:00 | NURSING ---
The fentanyl patch on the patient's back is noted that it had been cut in half by the patient at home. Patient verbalized that he withdrawals if he does not cut the patch in half. Education provided to patient on proper use of fentanyl patch and pharmacy educator contacted as well for further follow up.
--- NOTE | 2019-09-16 09:15 | NURSING ---
Patient's fentanyl patch from home removed at this time. Erasmo Vitale RN, witnessed waste of the patch--Placed in pharmaceutical waste disposal container. New patch placed to back/left shoulder--See [facility]
[2019-09-16] MEDS: amLODIPine 10 MG Tablet PO (09:38)
[2019-09-16] MEDS: Pantoprazole Sodium 20 MG Tablet PO ×2 (09:38→22:10)
[2019-09-16] MEDS: hydrOXYzine PAM 25 MG Capsule PO (09:38)
[2019-09-16] MEDS: Acetaminophen 325 MG Tablet 650 MG PO (09:38)
[2019-09-16] MEDS: Enoxaparin 40 MG/0.4 ML Syringe SC (09:38)
[2019-09-16] MEDS: guaiFENesin 1,200 MG Tablet 1200 MG PO ×2 (09:39→22:09)
[2019-09-16] MEDS: Folic Acid 1 MG Tablet PO (09:39)
[2019-09-16] MEDS: Metoprolol(XL)Succ 100 MG Tablet PO (09:39)
[2019-09-16] MEDS: Doxycycline 100 MG CAPSULE PO ×2 (09:39→22:08)
[2019-09-16] MEDS: 0.9% Saline Lock 10 ML Syringe IV ×2 (09:40→14:05)
[2019-09-16] MEDS: buPROPion (XL) 150 MG TABLET.XL PO (09:40)
--- NOTE | 2019-09-16 09:47 | PCM.PN.HOSP ---
Patient Problems: Active and Suspected Problems (Last Reviewed 11/05/17 @ 16:06 by Cassie Trujillo) COPD exacerbation (Acute) Acute bronchitis (Acute) Subjective: Patient seen and examined. He was admitted with a complaint of shortness of breath for 4-5 days prior to admission. He had associated cough, fever and chills. Cough was noonproductive. HE says his grandson had URTI due to RSV infection, and he thinks he may have caught it from him. In the ED, he had a low grade fever, with tachycardia and tachypnea as well as hypoxia. CXR showed on acute cardiopulmonary pathology. He is being managed for acute bronchitis and is on IV levaquin. Patient has no complaints today and feels much better. He is off oxygen and was saturating at 94% on room air at rest. He still has a cough, but he says it is nonproductive. Review of systems is otherwise negative. Labs and vitals reviewed. WBC has trended down to 24.8 today. Repeat CXR done. Tachypnea and tachycardia as well as fever have resolved. Vitals/I&O's: Vital Signs Temp Pulse Resp BP Pulse Ox 97.6 F L 86 18 131/76 H 94 09/16/19 09:04 09/16/19 09:04 09/16/19 09:04 09/16/19 09:04 09/16/19 09:04 Oxygen Flow Rate (L/min) 2.5 Oxygen Delivery Method Room Air Weight: 205 lb 7 oz Body Mass Index (BMI) 27.8 Intake and Output for Last 24 Hours 09/14/19 09/15/19 09/16/19 23:59 23:59 23:59 Intake Total 1150 / 1150 Balance 1150 / 1150 General: Alert, Oriented x3, Cooperative, No apparent distress HEENT: Atraumatic, PERRLA, EOMI, Normocephalic Oral: Moist Mucosa Neck: Supple, No JVD, Negative Carotid Bruits Lungs: - - decreased breath sounds, with mild wheezing in all lung ricardo. Cardiovascular: Regular rate, Regular Rhythm, Normal S1, Normal S2, No murmurs Abdomen: Bowel Sounds Present, Soft, Non Tender Extremities: No clubbing, No cyanosis, No edema, Capillary Refill Less than 3 Seconds Skin: No rashes, No breakdown Musculoskeletal: No Tenderness to Palpation of Joints or Extremities Lymphatic: No Cervical, Supraclavicular, or Inguinal Adenopathy Neurological: Cranial nerves II-XII grossly intact, Neuro grossly intact, Motor Exam 5/5 strength throughout Psych/Mental Status: Normal Affect, Appropriate, Alert and oriented to time, place, person, mood and affect Microbiology Past 72 Hours 09/15/19 23:29 Sputum, Expectorated/Coughed Gram Stain - Preliminary 09/15/19 21:43 Urine, Clean Catch Streptococcus pneumoniae Antigen (M - Final 09/15/19 21:43 Urine, Clean Catch Legionella Antigen - Final 09/15/19 17:21 Mucosa - Nasopharyngeal Influenza Types A,B Direct FA (MAGGIE) - Final Laboratory Results 09/15/19 17:03: WBC 29.7 H, RBC 5.59, Hgb 16.7 H, Hct 49.7, MCV 88.9, MCH 29.9, MCHC 33.6, RDW Std Deviation 40.1, RDW Coeff of Migd[place] 12.3, Plt Count 301, MPV 10.8, Immature Gran % (Auto) 0.900, Neut % (Auto) 82.8 H, Lymph % (Auto) 8.1 L, Gilliam % (Auto) 6.9, Eos % (Auto) 1.0, Baso % (Auto) 0.3, Absolute Neuts (auto) 24.6 H, Absolute Lymphs (auto) 2.42, Nucleated RBC % 0, Differential Comment SCANNED, Diff Path Review January09/15/19 17:03: Sodium 138, Potassium 3.2 L, Chloride 102, Carbon Dioxide 30.0, Anion Gap 6, BUN 26 H, Creatinine 2.03 H, Estim Creat Clear Calc 48.65, Est GFR (MDRD) Af Amer 45 L, Est GFR (MDRD) Non-Af 37 L, BUN/Creatinine Ratio 12.8, Glucose 115 H, Calcium 9.0, Troponin I < 0.015 09/15/19 17:03: Lactic Acid 1.7 09/15/19 17:03: APTT 34.2 09/15/19 17:03: Magnesium 1.7 09/15/19 21:43: Urine Color Yellow, Urine Clarity Clear, Urine pH 5.0, Ur Specific [place] 1.010, Urine Protein Negative, Urine Glucose (UA) Normal, Urine Ketones Negative, Urine Occult Blood Negative, Urine Nitrite Negative, Urine Bilirubin Negative, Urine Urobilinogen Normal, Ur Leukocyte Esterase Negative, Urine RBC 0 SEEN, Urine WBC 0 SEEN, Ur Squamous Epith Cells 0 SEEN, Urine Bacteria 0 SEEN, Urine Mucus 0 SEEN 09/16/19 06:00: MRSA (PCR) Negative 09/16/19 06:14: Total Bilirubin 0.40, Direct Bilirubin 0.09, AST 14 L, ALT 27, Alkaline Phosphatase 124 H, Total Protein 7.0, Albumin 3.3, Globulin 3.7, TSH 0.21 L 09/16/19 06:14: PT 13.5, INR 1.1 09/16/19 06:14: WBC 24.8 H, RBC 4.77, Hgb 14.3, Hct 42.1, MCV 88.3, MCH 30.0, MCHC 34.0, RDW Std Deviation 40.8, RDW Coeff of Migdalia 12.5, Plt Count 223, MPV 11.1, Immature Gran % (Auto) 1.000 H, Neut % (Auto) 92.6 H, Lymph % (Auto) 5.1 L, Gilliam % (Auto) 1.2, Eos % (Auto) 0.0, Baso % (Auto) 0.1, Absolute Neuts (auto) 22.9 H, Absolute Lymphs (auto) 1.26, Nucleated RBC % 0 Current Medications Acetaminophen (Tylenol) 650 mg PO Q6H PRN PRN PRN Reason: Pain Score 1-3/Temp > 100.7 F Albuterol Sulfate (Ventolin Aerosols) 2.5 mg INHALATION Q2H PRN PRN PRN Reason: SHORTNESS OF BREATH Albuterol/Ipratropium (Duoneb) 3 ml INHALATION Q4H.RT [facility] Last Admin: 09/16/19 05:27 Dose: 3 ml Documented by: Amlodipine Besylate (Norvasc) 10 mg PO DAILY [facility] Bisacodyl (Dulcolax) 10 mg RECTAL DAILY PRN PRN PRN Reason: Constipation Bupropion HCl (Wellbutrin Xl) 150 mg PO DAILY [facility] Clonazepam (Klonopin) 0.5 mg PO BID [facility] Docusate Sodium (Colace) 200 mg PO BID PRN PRN PRN Reason: Constipation Doxycycline Monohydrate (Doxycycline) 100 mg PO BID [facility] Last Admin: 09/15/19 21:56 Dose: 100 mg Documented by: Enoxaparin Sodium (Lovenox) 40 mg SC DAILY [facility] Last Admin: 09/15/19 21:48 Dose: 40 mg Documented by: Fentanyl (Duragesic Patch) 75 mcg TRANSDERM. Q72H [facility] Folic Acid (Folic Acid) 1 mg PO DAILY@0800 [facility] Glucagon () 1 mg IM .X1 PRN PRN Reason: Hypoglycemia Guaifenesin (Mucinex) 1,200 mg PO BID [facility] Last Admin: 09/15/19 21:49 Dose: 1,200 mg Documented by: Hydromorphone HCl (Dilaudid Inj) 0.5 mg IV Q4H PRN PRN PRN Reason: Pain Score 6-10/10 Hydroxyzine Pamoate (Vistaril Pamoate Capsule) 25 mg PO DAILY [facility] Sodium Chloride () 1,000 mls @ 75 mls/hr IV .[id number] [facility] Stop: 09/16/19 22:42 Last Admin: 09/15/19 21:49 Dose: 75 mls/hr Documented by: Dextrose (Dextrose 10%-Water) 250 mls @ 999 mls/hr IV .Q16M PRN; Protocol PRN Reason: HYPOGLYCEMIA Ceftriaxone Sodium 2 gm/ (Sodium Chloride) 50 mls @ 100 mls/hr IV Q24 [facility] Methylprednisolone (Solu-Medrol) 40 mg IV Q8 [facility] Last Admin: 09/16/19 05:44 Dose: 40 mg Documented by: Metoprolol Succinate (Toprol Xl (Beta Kyle)) 100 mg PO DAILY [facility] Nutritional Formula (Lactose Free) (Ensure Enlive) 120 ml PO 4X/DAY [facility] Ondansetron HCl (Zofran) 8 mg PO Q8H PRN PRN PRN Reason: NAUSEA Oxycodone HCl (Oxyir) 10 mg PO Q4H PRN PRN PRN Reason: Pain Score 4-5/10 Oxycodone HCl (Oxyir) 10 mg PO TID [facility] Last Admin: 09/16/19 05:44 Dose: 10 mg Documented by: Pantoprazole Sodium (Protonix) 20 mg PO BID [facility] Polyethylene Glycol (Miralax) 17 gm PO DAILY [facility] Potassium Chloride (K-Dur) 20 meq PO DAILY [facility] Prochlorperazine Edisylate (Compazine Iv) 5 mg IV Q4H PRN PRN PRN Reason: Breakthrough nausea/vomiting Promethazine HCl (Phenergan Tablet) 25 mg PO Q6H PRN PRN PRN Reason: NAUSEA Sodium Chloride () 10 - 40 ml IV UD PRN PRN Reason: SALINE FLUSH Zolpidem Tartrate (Ambien (Generic)) 20 mg PO QHS [facility] Last Admin: 09/16/19 00:20 Dose: 20 mg Documented by: STROKE Vital Signs/Narrative: Vital Signs Temp Pulse Resp BP Pulse Ox 09/16/19 09:04 97.6 F L 86 18 131/76 H 94 09/16/19 07:37 82 Medical Necessity - Tobacco Use Smoking Status: Current every day smoker Tobacco Use: Cigarettes Assessment/Plan All Active Problems (Last Reviewed 11/05/17 @ 16:06 by Cassie Trujillo) COPD exacerbation (Acute) Acute bronchitis (Acute) S/P colonoscopy (Acute) H/O removal of cyst (Acute) Nausea (Resolved) COPD (chronic obstructive pulmonary disease) (Acute) Tobacco dependence (Resolved) Hodgkin lymphoma (Resolved) 1. Acute hypoxic respiratory insufficiency due to COPD exacerbation and probable community acquired pneumonia now on room air and saturating at 94% on room air on IV rocephin and docycycline on IV solumedrol and duonebs for breathing treatments q4hrly chest physiotherapy; incentive spirometry counseled to quit smoking respiratory panel pending. Influenza screen was negative. 2. COPD exacerbation due to acute bronchitis had positive SIRS criteria on admission (tachycardia, tachypnea and leucocytosis) CXR showed no infiltrate. Leucocytosis may have been due to steroids patient has been on. continue IV rocephin and doxycycline urine for strep and legionella antigens are negative. 3. Atypical chest pain: likely pleuritic. Also says he gets chest pain due to panic attack. troponins x 3 are negative. 4. Hypokalemia: K was 3.2 on admission. Will replace and trend. 5. Non hodgkins lymphoma in remission since [address] Marquez. 6.Chronic pain disorder: on oxycodone. 7. Hypertension: on amlodipine and metoprolol DVT prophylaxis; lovenox Code Visit Inpatient E&M: 67877 Subs Hosp L2
[2019-09-16] MEDS: clonazePAM 0.5 MG Tablet PO ×2 (09:48→22:10)
[2019-09-16 10:36] LABS: Anion Gap 10 (5-15); BUN 22 mg/dL (7-18); BUN/Creat Ratio 14.8 RATIO (10-20); Calcium,Total 9.1 mg/dL (8.5-10.1); Chloride 109 mmol/L (98-107); Creatinine, Serum 1.49 mg/dL (0.70-1.30); EST Glomerular Filtration Rate 53 mL/min (>60); Est Glom Filt Rate - Afr Amer 64 mL/min (>60); Estimated Creatinine Clearance 64.38 ml/min; Glucose 165 mg/dL (74-106); Potassium 3.7 mmol/L (3.5-5.1); Sodium Level 139 mmol/L (136-145)
--- NOTE | 2019-09-16 11:25 | CASEMGMT ---
RN CM Assessment Introduced role of RN CM to patient, patient resting and easily aroused.? Patient is alert, oriented and able?to participate in RN CM Assessment. ?Care providers, pharmacy, and demographics verified. Presentation: Worsening SOB. H/o COPD, Current Smoker 1/2PPD, Non-Hodgkins Lymphoma remission since 2016. Admit Dx: COPD Exacerbation, possible Bronchitis Re-Admit: No Barriers/Issues: None PCP: Linsey Medley Specialists: Onc- Beverly Garcia, SHADI at [facility] and Dr Marquez. Pain- Dr Freedom Markham at [facility] Preferred Pharmacy: [facility]. For pain medications prefers [facility] Insurance: [facility] Rx Benefit:?Yes ?LNOK: Karlie Morris LW/HPOA: None, [facility] would like to complete on this admission. MANDI Tobias made aware. Living Arrangements:? Lives with in a 2SH, Bedroom on 1st fl. 2 steps to enter home from front and 4 steps in the back. ADL?s: Independent with ambulation and ADLs Transportation: Patient and drive DME: Nebulizer. In Network DME list provided in case home O2 is required upon DC-patient preference is [facility] HHC: None SNF: None Goal: Home and does not think will have any needs. States has medication for his nebulizer machine. Denies any further issues, concerns, or questions with Dc planning at this time. Aware CM remains available for any emerging needs. DC PLAN: Home with possible home O2-CM to follow up on ambulatory oxygen testing. AVEL Maradiaga
--- NOTE | 2019-09-16 13:57 | CASEMGMT ---
Social Work Consult: Advanced Directives. Informant: Torres Grace RNnurse monitoring Met with patient in room. Introduced self as well as social work specialist role. Patient agreeable to meet with this social work specialist. Patient confirming to want to complete advanced directives. Living Will and Durable Power of Medicaid Business Analyst for health care paperwork completed with patient. Patient nominating patient spouse, Karlie as first health care power of hat parts cutter machine. Provided patient with original documents and placed copy on patient chart. During conversation about advanced directives was also able to broach topic of patient cancer diagnosis. Per patient patient has been on and off with cancer for the past 13 years. Patient stating that per patient oncologist, my cancer will not go away this time. Patient stating to be sad but okay. Patient stating to find interest in life and scoring 11/25 on the PHQ-9. Active listening and support provided for patient. Elena CARTAGENA, RANDI
[2019-09-16] MEDS: 0.9% Normal Saline 1,000 ML 75 ML IV (14:05)
[2019-09-16 14:18] LABS: Pathologist Review Reviewed
--- NOTE | 2019-09-16 14:59 | PHA.DC ---
Pharmacy Counseling Note Patient Medication Counseling Notes: This PHARMD was called by nursing staff to discuss the risks of cutting a fentanyl patch with the patient. Pt reports cutting a 75mcg/hr fentanyl patch in half and applying the first half one day and the second half the following day. He states he feels he needs to do this to get a large dose to avoid withdrawal. He claims his pain management physician Dr. Markham does not recommend this method but is aware of him cutting the patches. This PHARMD explained that the patch will not release consistent, safe amounts of drug if the patch is compromised by cutting and that he most likely feels he needs a bigger dose when he puts on a new patch because it is not lasting as long as an intact patch would. This PHARMD cautioned that this could lead to overdose and/or withdrawal symptoms because of the erratic absorption and advised the patient to use the patch as prescribed (1 whole patch Q72H). Pt voiced understanding and states he appreciates the concern and information but he will continue to cut the patches as he has for 11 years.
--- NOTE | 2019-09-16 16:48 | CHAPLAIN ---
Type of Pastoral Visit _x__ Initial Visit ___ Follow-up Visit ___ On-call Visit ___ General Patient Visit ___ Spiritual Assessment ___ Family Conference ___ Bereavement ___ Rapid Response ___ Code Blue ___ Other (describe below) Pastoral Care Referral From _x__ Patient ___ Family ___ Nurse ___ Physician ___ Manager Provider Relations ___ Cable Strander ___ Other (describe below) Sacrament/Intervention _x__ Active listening ___ Anointing ___ Yazidism ___ Bereavement ___ Communion _x__ Anai exploration ___ _x__ Life review _x__ Prayer ___ Reconciliation ___ Sacrament of Sick _x__ Supportive presence ___ Wedding ___ Other (describe below) Pastoral Comments patient has spiritual concerns and asks questions about such; pt seeks spiritual support and prayers; pt would like to connect to a local latter-day again
[2019-09-17] VITALS (7 sets, daily range): BP systolic 132–136; BP diastolic 72–80; PULSE 78–93; RESP 16–18; TEMP 36.3–36.6; O2SAT 92–93
--- NOTE | 2019-09-17 05:55 | EKG12_ITS ---
Test Reason : AM EKG Blood Pressure : / mmHG Vent. Rate : 071 BPM Atrial Rate : 071 BPM P-R Int : 178 ms QRS Dur : 088 ms QT Int : 444 ms P-R-T Axes : 046 011 012 degrees QTc Int : 482 ms Normal sinus rhythm Prolonged QT Abnormal ECG When compared with ECG of 15-SEP-2019 17:01, MANUAL COMPARISON REQUIRED, DATA IS UNCONFIRMED Confirmed by WILLA SINGH, MIREYA ([id number]), digital editor LESLIE SANTOS ([id number]) on 09/21/2019 9:50:25 AM Referred By: Dominguez Pepper Confirmed By:MIREYA CROUCH MD
[2019-09-17 06:03] LABS: Absolute Lymphocyte Count 1.08 X10^3/uL (0.83-4.51); Absolute Neutrophil Count 21.8 X10^3/uL (2.0-7.7); Basophil# 0.04 X10^3/uL; Basophil% 0.2 % (0-1); Hematocrit 40.4 % (40-54); Hemoglobin 13.3 g/dL (13.0-16.5); Lymphocyte # 1.08 X10^3/ul (4.0); Lymphocyte % 4.5 % (19-41); Mean Corp Hgb Conc 32.9 g/dL (32-36); Mean Platelet Vol. 10.7 fl (6.2-12.0); Monocyte# 0.69 X10^3/uL; Monocyte% 2.9 % (0-10); NRBC Flagged by Analyzer 0 % (0-5); Neutrophil # 21.78 X10^3/uL (2.7-7.7); POSITIVE DIFFERENTIAL YES; Platelet Count 266 K/mm3 (150-450); RBC Distribution Width CV 12.6 % (11.6-14.6); RBC Distribution Width SD 40.8 fl (35.1-43.9); Red Blood Count 4.59 M/mm3 (4.6-6.2); White Blood Count 24.2 K/mm3 (4.4-11.0)
[2019-09-17 06:11] LABS: Differential Indicated SCAN CRITERIA MET
[2019-09-17] MEDS: oxyCODONE 5 MG Tablet 10 MG PO (06:57)
[2019-09-17] MEDS: Ipratropium/Albuterol Sulfate 3 ML AMPUL.NEB INHALATION ×2 (07:38→11:01)
[2019-09-17 07:46] LABS: Anion Gap 8 (5-15); BUN 26 mg/dL (7-18); BUN/Creat Ratio 18.7 RATIO (10-20); Calcium,Total 8.8 mg/dL (8.5-10.1); Chloride 111 mmol/L (98-107); Creatinine, Serum 1.39 mg/dL (0.70-1.30); EST Glomerular Filtration Rate 57 mL/min (>60); Est Glom Filt Rate - Afr Amer 69 mL/min (>60); Estimated Creatinine Clearance 69.01 ml/min; Glucose 199 mg/dL (74-106); Potassium 3.8 mmol/L (3.5-5.1); Sodium Level 142 mmol/L (136-145)
[2019-09-17] MEDS: 0.9% Saline Lock 10 ML Syringe IV (10:48)
[2019-09-17] MEDS: clonazePAM 0.5 MG Tablet PO (10:48)
--- NOTE | 2019-09-17 10:50 | PCM.DC ---
- Discharge Diagnoses Current Active Problems: Current Active and Chronic Problems (Last Reviewed 11/05/17 @ 16:06 by Cassie Trujillo) COPD exacerbation (Acute) Acute bronchitis (Acute) You will use the following diet at home:: Cardiac Your food should be the consistency of: Regular Your liquids should be the consistency of: Regular/Thin Discharge Activity: Return to Normal Activity Weight Bearing Status: Weight bearing as tolerated Call your doctor if you observe: Fever of 101 or Higher, Shortness of breath Instructions: Rapid Detection of Respiratory Syncytial Virus, RSV (Respiratory Syncytial Virus) Allergies/Adverse Reactions: Allergies hydrocodone bitartrate [From Vicodin] Adverse Reaction (Verified 09/15/19 17:02) Nausea Medications to take at Discharge Albuterol IH (ProAir) [Proair Hfa] 2 puff INHALATION Q6H PRN PRN 07/18/14 Ibuprofen [Motrin] 800 mg PO TID PRN PRN 07/18/14 Metoprolol(XL)Succ [Toprol Xl (Beta Kyle)] 100 mg PO DAILY 07/18/14 Omeprazole [Prilosec] 20 mg PO BID 07/18/14 Zolpidem Tartrate [Ambien] 20 mg PO QHS 07/18/14 fentaNYL patch [Duragesic patch] 75 mcg TRANSDERM. Q72H 07/18/14 Potassium Chloride [K-Dur] 20 meq PO DAILY 01/16/17 proMETHazine tablet [Phenergan tablet] 25 mg PO Q6H PRN PRN #10 tab 01/17/17 Amlodipine [Norvasc] 10 mg PO DAILY 03/23/17 Ondansetron [Zofran] 8 mg PO Q8H PRN PRN 03/23/17 Clonazepam [Klonopin] 0.5 mg PO BID 02/23/18 Folic Acid 0.8 mg PO DAILY 09/15/19 Hydrochlorothiazide [Hctz] 25 mg PO DAILY 09/15/19 Hydroxyzine HCl 25 mg PO DAILY 09/15/19 Oxycodone HCl 10 mg PO TID 09/15/19 buPROPion XL [Wellbutrin Xl] 150 mg PO DAILY 09/15/19 predniSONE tablet 40 mg PO DAILY 5 Days #10 tab 09/17/19 The following prescriptions were given: predniSONE tablet 40 mg PO DAILY 5 Days #10 tab Transmission Status: Pending to [facility] Primary Care Physician: Linsey Medley MD [Primary Care Provider] - Please follow up with your Primary Care Physician in: one week Test Results: Test results from this visit will be discussed in further detail at your follow-up appointment, if applicable. Proposed Discharge Date: 09/17/19
[2019-09-17] MEDS: Folic Acid 1 MG Tablet PO (10:51)
[2019-09-17] MEDS: Doxycycline 100 MG CAPSULE PO (10:51)
[2019-09-17] MEDS: guaiFENesin 1,200 MG Tablet 1200 MG PO (10:52)
[2019-09-17] MEDS: Metoprolol(XL)Succ 100 MG Tablet PO (10:52)
[2019-09-17] MEDS: Pantoprazole Sodium 20 MG Tablet PO (10:53)
[2019-09-17] MEDS: amLODIPine 10 MG Tablet PO (10:53)
[2019-09-17] MEDS: buPROPion (XL) 150 MG TABLET.XL PO (10:56)
[2019-09-17] MEDS: hydrOXYzine PAM 25 MG Capsule PO (10:56)
--- NOTE | 2019-09-17 16:25 | DS.PCM_ITS ---
Discharge Date and Diagnosis Date of Admission: 09/15/19 Date of Discharge: 09/17/19 - Primary Discharge Diagnosis URTI due to RSV infection acute hypoxic respiratory insufficiency COPD exacerbation - Secondary Discharge Diagnosis Chronic Problems (Last Reviewed 11/05/17 @ 16:06 by Cassie Trujillo) History of partial colectomy (Chronic) Lymphoma (Chronic) Mantle cell Insomnia (Chronic) Chronic pain disorder (Chronic) Hypertension (Chronic) Anxiety (Chronic) GERD (gastroesophageal reflux disease) (Chronic) Hospital Course and Treatment Imaging Results: Diagnostic Data Chest X-Ray 09/16/19 07:50 IMPRESSION: Normal x-ray examination of the chest. Electronically Signed: Matthias Hernandez, at 12:16 EST , Service support , Operations: None Procedures: None Summary of Care Provided: The patient is a 49 year old M past medical history as listed. He was admitted with a complaint of shortness of breath which have been going on for about 4 to 5 days prior to admission. He was admitted on 09/16/2019. He had associated cough, fever and chills. Cough was nonproductive. He said his grandson had had an upper respiratory tract infection which was due to RSV infection and he thought he may have caught it from his grandson. He has a history of non- Hodgkin's lymphoma and has been in remission since 2016. In the ED he had a low-grade fever with temperature of 99.9 Fahrenheit, respiratory rate was 24 and heart rate was 101. He was saturating at 87% on room air which went up to 95% on 3 L of oxygen. CBC showed leukocytosis with white cell count of 30,000. He was started on IV Levaquin in the ED. He was admitted and managed for acute COPD exacerbation due to acute bronchitis and acute hypoxic respiratory insufficiency due to COPD exacerbation and probable community-acquired pneumonia. Chest x-ray showed no infiltrate and leukocytosis was likely due to the steroids that he had been on. He was started on IV Rocephin and doxycycline. Urine for strep and Legionella were negative. Respiratory panel came back positive for RSV. Diagnosis was therefore advised to upper respiratory tract infection due to RSV infection and acute hypoxic respiratory insufficiency. Patient remained stable and shortness of breath resolved. He was saturating well on room air and on day of discharge, he was saturating at 91% on room air with ambulation. He remained stable and he was discharged home on 09/17/2019. He is to follow-up with his primary care doctor within 1 week. Patient seen and examined prior to discharge. He felt very well and was ready to go home. He had no complaints. Review of systems otherwise negative. Labs and vitals reviewed. Home medication reviewed and reconciled. o/e: Vital Signs Height 6 ft Weight: 205 lb 7.004 oz Weight in Pounds 205.4 lbs Pulse Ox 93 Temperature 97.3 F Pulse Rate 79 Respiratory Rate 18 Blood Pressure 132/72 Blood Pressure Position Sitting [] General: Alert, Oriented x3, Cooperative, No apparent distress HEENT: Atraumatic, PERRLA, EOMI, Normocephalic Oral: Moist Mucosa Neck: Supple, No JVD, Negative Carotid Bruits Lungs: - -clear to auscultation Cardiovascular: Regular rate, Regular Rhythm, Normal S1, Normal S2, No murmurs Abdomen: Bowel Sounds Present, Soft, Non Tender Extremities: No clubbing, No cyanosis, No edema, Capillary Refill Less than 3 Seconds Skin: No rashes, No breakdown Musculoskeletal: No Tenderness to Palpation of Joints or Extremities Lymphatic: No Cervical, Supraclavicular, or Inguinal Adenopathy Neurological: Cranial nerves II-XII grossly intact, Neuro grossly intact, Motor Exam 5/5 strength throughout Psych/Mental Status: Normal Affect, Appropriate, Alert and oriented to time, place, person, mood and affect Plan is to discharge home today. - Physical Exam Vitals/I&O's: Vital Signs Temp Pulse Resp BP Pulse Ox 97.3 F L 79 18 132/72 H 93 09/17/19 11:39 09/17/19 11:39 09/17/19 11:39 09/17/19 11:39 09/17/19 11:39 Oxygen Flow Rate (L/min) 2.5 Oxygen Delivery Method Room Air Weight: 205 lb 7.004 oz Body Mass Index (BMI) 27.8 Intake and Output for Last 24 Hours 09/15/19 09/16/19 09/17/19 23:59 23:59 23:59 Intake Total 1150 / 1150 2150 / 2650 2150 / 2150 Balance 1150 / 1150 2150 / 2650 2150 / 2150 Microbiology Past 72 Hours 09/15/19 23:29 Sputum, Expectorated/Coughed Gram Stain - Final 09/15/19 23:29 Sputum, Expectorated/Coughed Respiratory Culture - Preliminary Appears to be normal respiratory shamar. Further studies to follow. 09/15/19 22:35 Mucosa - Nose Respiratory Panel (PCR) - Final RSV A 09/15/19 21:43 Urine, Clean Catch Streptococcus pneumoniae Antigen (M - Final 09/15/19 21:43 Urine, Clean Catch Legionella Antigen - Final 09/15/19 17:21 Mucosa - Nasopharyngeal Influenza Types A,B Direct FA (MAGGIE) - Final Laboratory Results 09/17/19 05:00: WBC 24.2 H, RBC 4.59 L, Hgb 13.3, Hct 40.4, MCV 88.0, MCH 29.0, MCHC 32.9, RDW Std Deviation 40.8, RDW Coeff of [place] 12.6, Plt Count 266, MPV 10.7, Immature Gran % (Auto) 2.400 H, Neut % (Auto) 90.0 H, Lymph % (Auto) 4.5 L , [place] % (Auto) 2.9, Eos % (Auto) 0.0, Baso % (Auto) 0.2, Absolute Neuts (auto) 21.8 H, Absolute Lymphs (auto) 1.08, Nucleated RBC % 0 09/17/19 05:00: Sodium 142, Potassium 3.8, Chloride 111 H, Carbon Dioxide 23.0, Anion Gap 8, BUN 26 H, Creatinine 1.39 H, Estim Creat Clear Calc 69.01, Est GFR (MDRD) Af Amer 69, Est GFR (MDRD) Non-Af 57 L, BUN/Creatinine Ratio 18.7, Glucose 199 H, Calcium 8.8 Discharge Diet: Low fat/ Low Cholesterol Discharge Activity: Return to Normal Activity Weight Bearing Status: Weight bearing as tolerated Call your doctor if you observe: Fever of 101 or Higher, Shortness of breath Home Medications: Medications to take at Discharge Albuterol IH (ProAir) [Proair Hfa] 2 puff INHALATION Q6H PRN PRN 07/18/14 Ibuprofen [Motrin] 800 mg PO TID PRN PRN 10/20/14 Metoprolol(XL)Succ [Toprol Xl (Beta Kyle)] 100 mg PO DAILY 07/18/14 Omeprazole [Prilosec] 20 mg PO BID 07/18/14 Zolpidem Tartrate [Ambien] 20 mg PO QHS 07/18/14 fentaNYL patch [Duragesic patch] 75 mcg TRANSDERM. Q72H 07/18/14 Potassium Chloride [K-Dur] 20 meq PO DAILY 01/16/17 proMETHazine tablet [Phenergan tablet] 25 mg PO Q6H PRN PRN #10 tab 01/17/17 Amlodipine [Norvasc] 10 mg PO DAILY 03/23/17 Ondansetron [Zofran] 8 mg PO Q8H PRN PRN 03/23/17 Clonazepam [Klonopin] 0.5 mg PO BID 02/23/18 Folic Acid 0.8 mg PO DAILY 09/15/19 Hydrochlorothiazide [Hctz] 25 mg PO DAILY 09/15/19 Hydroxyzine HCl 25 mg PO DAILY 09/15/19 Oxycodone HCl 10 mg PO TID 09/15/19 buPROPion XL [Wellbutrin Xl] 150 mg PO DAILY 09/15/19 predniSONE tablet 40 mg PO DAILY 5 Days #10 tab 09/17/19 Following Prescrptions Were Given to Patient: predniSONE tablet 40 mg PO DAILY 5 Days #10 tab Transmission Status: Received by M[facility] [facility] Primary Care Physician: Linsey Medley MD [Primary Care Provider] - Please follow up with your Primary Care Physician in: one week Please Follow Up With: Linsey Medley MD When: 1 week Patient Instructions: Rapid Detection of Respiratory Syncytial Virus, RSV (Respiratory Syncytial Virus) Disposition: Home Minutes spent on discharge:: 40 Patient Condition:: Stable Medical Necessity - Tobacco Use Smoking Status: Current every day smoker Tobacco Use: Cigarettes Meaningful Use Info Meaningful Use Diagnoses (Choose all that apply): None applicable Code Visit Inpatient E&M: 63425 Disch Hosp
--- NOTE | 2019-09-20 15:22 | CASEMGMT ---
ROSITA CM Discharge Follow-up Phone Call: CONSUELO: Brianna Strata: 3 Call Date: 09/20/19 Discharge Date: 09/17/19 Time of Call: 1520 Duration: 3 ? Admitting Diagnosis: COPD exac 2/2 RSV URTI Discharge follow-up call attempted to pt. Nondescript voicemail box received. Nondescript message left requesting a return call. Jameel Bryant RN
== END 2019-09-17 11:50 | disposition home or self-care (01) | DRG 191 ==
LOC: ED 17:21 → MS3 19:55
PROVIDERS: Admitting Provider Internal Medicine; Emergency Provider Emergency Medicine; Family Provider Internal Medicine; PCP Internal Medicine; Referring Provider Internal Medicine; Visit Provider Student in an Organized Health Care Education/Training Program
DX: J44.1 Chronic obstructive pulmonary disease with (acute) exacerbation (principal); C85.90 Non-Hodgkin lymphoma, unspecified, unspecified site; J06.9 Acute upper respiratory infection, unspecified; B97.4 Respiratory syncytial virus as the cause of diseases classified elsewhere; R09.02 Hypoxemia; R06.89 Other abnormalities of breathing; E87.6 Hypokalemia; G89.29 Other chronic pain; I10 Essential (primary) hypertension; K21.9 Gastro-esophageal reflux disease without esophagitis; G47.00 Insomnia, unspecified; Z90.49 Acquired absence of other specified parts of digestive tract; F17.210 Nicotine dependence, cigarettes, uncomplicated
CPT/HCPCS: 36415; 71045; 71046; 80048; 80076; 81001; 83605; 83735; 84443; 84484; 85025; 85610; 85730; 87040; 87070; 87205; 87449; 87633; 87641; 87804; 93005; 94640; 94667; 94668; 97802; 99251; 99285; J7030; J7050; A4216; G0463; J0696; J2405

== ENCOUNTER 2020-03-22 07:58 | Day surgery (SDC) | payer MEDICARE, SELFPAY ==
--- NOTE | 2020-03-08 01:24 | HP_ITS ---
Intake Vital Signs 03/08/20 BMI 27.8 03/08/20 Height 6 ft 1 in 03/08/20 Weight: 215 lb 03/08/20 BMI 28.3 03/08/20 BP 124/83 H 03/08/20 Blood Pressure Location Rt brachial 03/08/20 Temp 98.4 F 03/08/20 Temp Source Temporal Intake Visit Reasons: EGD/WT Loss Chief Complaint: COPD Exacerbation Catia Designer Required: No Is patient in pain?: No Allergies hydrocodone bitartrate [From Vicodin] Adverse Reaction (Verified 03/08/20 13:18) Nausea Medications Albuterol IH (ProAir) [Proair Hfa] 2 puff INHALATION Q6H PRN PRN 07/18/14 [History Confirmed 09/15/19] Ibuprofen [Motrin] 800 mg PO TID PRN PRN 07/18/14 [History Confirmed 09/15/19] Metoprolol(XL)Succ [Toprol Xl (Beta Kyle)] 100 mg PO DAILY 07/18/14 [History Confirmed 09/15/19] Omeprazole [Prilosec] 20 mg PO BID 07/18/14 [History Confirmed 09/15/19] proMETHazine tablet [Phenergan tablet] 25 mg PO Q6H PRN PRN #10 tab 01/17/17 [Rx Confirmed 09/15/19] Amlodipine [Norvasc] 10 mg PO DAILY 03/23/17 [History Confirmed 09/15/19] Clonazepam [Klonopin] 0.5 mg PO BID 02/23/18 [History Confirmed 09/15/19] Folic Acid 0.8 mg PO DAILY 09/15/19 [History Confirmed 09/15/19] Hydrochlorothiazide [Hctz] 25 mg PO DAILY 09/15/19 [History Confirmed 09/15/19] Oxycodone HCl 10 mg PO TID 09/15/19 [History Confirmed 09/15/19] buPROPion XL [Wellbutrin Xl] 150 mg PO DAILY 09/15/19 [History Confirmed 09/15/19] budesonide-formoterol HFA 160 mcg-4.5 mcg/actuation aerosol inhaler 2 puff INHALATION BID 03/08/20 [History] cholecalciferol (vitamin D3) 125 mcg (5,000 unit) capsule ea PO 03/08/20 [History] ketoconazole 2 % topical cream TOPICAL 03/08/20 [History] PFSH Medical History Lymphoma (Chronic) Insomnia (Chronic) Chronic pain disorder (Chronic) Nausea (Resolved) Hypertension (Chronic) Anxiety (Chronic) GERD (gastroesophageal reflux disease) (Chronic) COPD (chronic obstructive pulmonary disease) (Acute) Marijuana use (Suspected) Tobacco dependence (Resolved) Diverticular disease (Acute) Lymphosarcoma (Acute) Surgical History History of partial colectomy (Chronic) S/P colonoscopy (Acute) H/O removal of cyst (Acute) History of incisional hernia repair (Acute) History of removal of Port-a-Cath (Acute) history of port insertion (Acute) Family History Mother No problems noted. Father Diabetes Hypertension Heart disease Myocardial infarction Brother Asthma Social History (Updated 03/08/20 @ 13:[address] Kleber Worley MD) Smoking Status: Current every day smoker alcohol intake: current substance use type: does not use caffeine: No what type of physical activity do you participate in: none frequency: does not exercise seatbelt use: always HPI HPI Surgical H&P: Yes HPI: BRIAN DAVILA, is a 49 M who presents to the office today for Evaluation for EGD. I last performed an EGD on him in July 2016. He has a history of Dee's esophagus and distal biopsies at that time did not show any signs of dysplasia. He was noted to have a GE junction at 36 cm 2 areas that looked suspicious for Dee's were identified but biopsies proved them to be negative. Patient was having a lot of nausea and vomiting for 3 weeks and the some difficulty swallowing meats. ROS General General: No weight change, appetite, fatigue, colon cancer, breast cancer or weakness HEENT HEENT: Yes difficulty swallowing, eye injury and eye surgery; no swollen glands or hoarseness Endo Endocrine: No thyroid disease, diabetes mellitus, thyroid cancer, Hair loss, heat intolerance or cold intolerance Skin Skin: No rash or changing moles Breast Breast: No left breast lump, right breast lump, nipple discharge, breast pain, abnormal mammogram, abnormal US or breast enlargement Musc Musculoskeletal: Yes back problems and arthritis; no rheumatoid arthritis, gout or joint pain Cardio Cardiovascular: Yes heart disease and high blood pressure; no murmur, pacemaker, atrial fibrillation, heart attack, heart stent, palpitations, shortness of breat with exertion or chest pain Psych Psychiatric: Yes depression and anxiety; no hearing voices Resp Respiratory: No shortness of breath, Yes sleep apnea, No cough, Yes COPD, No asthma, Yes emphysema, No wheezing Gastro Gastrointestinal: Yes abdominal pain, Yes nausea or vomiting, No diarrhea, No constipation, No blood in stool, Yes acid reflux, No hemorrhoids, No ulcers, No gallbladder problem, No black,tarry stools John Hematologic: No blood thinners, No blood disorders, No bleeding, No anemia, No blood clots Neuro Neurologic: No system reviewed and no additional complaints, except as docu, No as per HPI, No abnormal walking, No abnormal hearing, No abnormal movements, No abnormal speech, No behavioral changes, No burning sensations, No confusion, No seizure-like activity, No unsteadiness, No dizziness, No localized weakness, No frequent falls, No headache(s), No lack of coordination, No loss of vision, No memory loss, No numbness, No other visual disturbances, No radiating pain, No restless legs, No sensory deficit, No fainting, No tingling, No tremor(s), No weakness, No other Exam Const General: no acute distress, well developed, well hydrated Orientation: oriented to person, oriented to place, oriented to time [facility] Head: normocephalic, atraumatic Ears: external ears normal Mouth: moist mucous membranes Eyes Sclera: sclerae normal Pupils: normal by confrontation Neck Neck: no lymphadenopathy noted Neck mass: No Thyroid: thyroid normal, symmetrical Chest Chest palpation & inspection: normal inspection of the chest Breast Palpation: No nipple discharge Resp Effort & Inspection: normal respiratory effort Auscultation: clear to auscultation bilaterally Percussion: percussion normal Cardio Rate: regular rate Rhythm: regular rhythm Heart Sounds: no murmurs GI Palpation: soft, no hepatosplenomegaly, no masses, nontender Rectal Exam: other Other: Rectal exam deferred. Extrem General: normal to inspection, no clubbing, cyanosis or edema Assessment & Plan Problems 1. Esophageal dysphagia R13.10 2. History of Dee's esophagus Z87.19 3. Nausea and vomiting, intractability of vomiting not specified, unspecified vomiting type R11.2 Plan I have discussed the above with the patient. I have offered the patient esophagogastroduodenoscopy for evaluation. I have explained the risks/benefits of the procedure and described the procedure. I have discussed the risks with the patient, including but not limited to: infection, bleeding, perforation of the GI tract requiring emergency surgery, inability to complete the procedure, injury to any internal organs, complications of anesthesia, etc. - the patient understands and agrees to proceed. I have answered all the patient's questions to the patient's satisfaction and the patient has no further questions. The patient has been given instructions for the colon cleansing preparation. We will be doing distal esophageal biopsies. Coding Level of Care Code Off vis,new,level 3 Diagnoses Esophageal dysphagia R13.10 ??Dysphagia type: esophageal phase History of Dee's esophagus Z87.19 Nausea and vomiting, intractability of vomiting not specified, unspecified vomiting type R11.2 ??Vomiting type: unspecified ??Vomiting Intractability: unspecified 03/08/20 1324 <Electronically signed by Kleber caballero MD> Date _ Kleber Worley MD I have re-examined the patient. There are no clinical changes since date of exam.
[2020-03-08 13:19] VITALS: BMI 27.8
[2020-03-12 12:06] LABS: Probe Check PASS; Specimen Processing Control PASS
--- NOTE | 2020-03-22 | GASB_PTH ---
PATIENT: BRIAN DAVILA LOC: EN U#:[id number] AGE/SX: 49/M ROOM: RE03/22/[address]: Dr. Kleber Worley MD : 1970 BED: DIS: 03/22/2020 SPEC #: [id number] RECD: 03/22/20 12:40 STATUS: KARL NELSON #: [id number] ELMO: 03/22/20 00:[address]: Kleber Worley DEPT: SURGICAL PATHOLOGY RECD BY: Luis Fernando Soares ENTERED: 03/22/20 12:40 SP TYPE: Gastric Bx OTHR DR: Dr. Linsey Medley MD Tissues: A - Gastric mucous membrane B - Esophagus, NOS Procedures: Special Stain Group II Surgery Specimen Level IV Alcian Blue/PAS (control) HEADER OPERATION: EGD ([facility]) PRE-OP DIAGNOSIS: Esophageal dysphagia, history Dee's esophagus, nausea and vomiting TISSUE SUBMITTED: A - Antrum biopsy for H. pylori and path, B - Distal esophagus biopsies MICROSCOPIC DIAGNOSIS A. Gastric antrum, biopsy: Minimal chronic inflammation. See comment. B. 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 No evidence of dysplasia. Gastroesophageal junction with chronic inflammation. Focal changes of reflux. See comment. AM:jasmin 03/23/20 COMMENT A. The results of immunohistochemistry for Helicobacter pylori will be reported separately ([id number]). B. Immunohistochemistry ([id number]) supports the above diagnosis. Alcian blue/PAS stain with matched control supports the above diagnosis. MICROSCOPIC DESCRIPTION Slides are reviewed. GROSS DESCRIPTION A - Received in fixative is one container labeled with the patient's name and designated antrum biopsy. The specimen consists of one irregular fragment of light toure soft tissue that measures 0.7 x 0.2 x 0.1 cm. The specimen is totally submitted in one cassette. B - Received in fixative is one container labeled with the patient's name and designated distal esophagus biopsy. The specimen consists of multiple irregular fragments of light toure soft tissue that in aggregate measure 1.5 x 0.3 x 0.1 cm. The specimen is totally submitted in one cassette. / OZ:jasmin 03/22/20 TC:3 CPT: 79444 x2, 30490
[2020-03-22 08:19] VITALS: BP 120/79; PULSE 56; RESP 20; TEMP 36.7; O2SAT 99; BMI 29.7
[2020-03-22] MEDS: Lactated Ringers 1,000 ML 100 ML IV (08:33)
--- NOTE | 2020-03-22 09:00 | IMM_PTH ---
PATIENT: BRIAN DAVILA LOC: EN U#:[id number] AGE/SX: 49/M ROOM: RE03/22/[address]: Dr. Kleber Worley MD : 1970 BED: DIS: 03/22/2020 SPEC #: [id number] RECD: 03/22/20 13:07 STATUS: KARL NELSON #: [id number] ELMO: 03/22/20 09:[address]: Kleber Worley DEPT: IMMUNOHISTOCHEMISTRY RECD BY: Liza Del Cid ENTERED: 03/22/20 13:08 SP TYPE: IMMUNO OTHR DR: Dr. Linsey Medley MD Tissues: A - Stomach, NOS B - Esophagus, NOS Procedures: H Pylori (initial) P53 (initial) PHYSICIAN & INSTITUTION [place] [id number] SPECIMEN INFORMATION: Tissue Source: A - Antrum biopsy, B - Distal esophagus biopsy Clinical Info: Esophageal dysphagia, history Dee's esophagus, nausea and vomiting Specimen Number: [id number] A & B CPT code: 39280 x2 METHODOLOGY: Deparaffinized sections of prefer/formalin-fixed tissue or PAP/DQ stained slides are incubated with monoclonal/polyclonal antibodies/oligonucleotide probes. Localization is made via biotin free immunoperoxidase method. Appropriate controls are performed and reacted as expected. Results on target cell population are indicated in the following table: RESULTS: ANTIBODY / CLONE RESULT Block A H Pylori (polyclonal) negative Block B negative P53 (DO-7) These tests were developed and their performance characteristics determined by [facility]. They may not have been cleared or approved by the U.S. Food and Drug Administration. The FDA has determined that such clearance or approval is not necessary. The above immunohistochemical/dualISH markers are ordered and reviewed by the pathologist. INTERPRETATION: A. Antrum biopsy: Negative for Helicobacter pylori organisms. B. Distal esophagus, biopsy: No evidence of dysplasia. SJ:jasmin 03/24/20
[2020-03-22 09:13] VITALS: BP 102/61; BP 120/79; PULSE 58; RESP 14; TEMP 36.4; O2SAT 98
--- NOTE | 2020-03-22 09:16 | OP.EGD_ITS ---
Patient Name: Douglas Morris Procedure Date: 03/22/2020 8:53 AM Date of : 1970 Age: 49 Procedure: Upper GI endoscopy Indications: Esophageal dysphagia, Follow-up of Dee's esophagus, Nausea with vomiting Providers: Kleber Worley MD Referring MD: Linsey Medley Medicines: See the Anesthesia note for documentation of the administered medications Patient Profile: This is a 49 year old male. Refer to note in patient chart for documentation of history and physical. Complications: No immediate complications. Procedure: Pre-Anesthesia Assessment: - Prior to the procedure, a History and Physical was performed, and patient medications and allergies were reviewed. The patient's tolerance of previous anesthesia was also reviewed. The risks and benefits of the procedure and the sedation options and risks were discussed with the patient. All questions were answered, and informed consent was obtained. Prior Anticoagulants: The patient has taken no previous anticoagulant or antiplatelet agents. ASA Grade Assessment: III - A patient with severe systemic disease. After reviewing the risks and benefits, the patient was deemed in satisfactory condition to undergo the procedure. After obtaining informed consent, the endoscope was passed under direct vision. Throughout the procedure, the patient's blood pressure, pulse, and oxygen saturations were monitored continuously. The Endoscope was introduced through the mouth, and advanced to the second part of duodenum. The upper GI endoscopy was accomplished without difficulty. The patient tolerated the procedure well. Scope In: 9:04:51 AM Scope Out: 9:09:55 AM Total Procedure Duration Time 0 hours 5 minutes 4 seconds Findings: Scattered islands of salmon-colored mucosa were present. No other visible abnormalities were present. The maximum longitudinal extent of these esophageal mucosal changes was 4 mm in length. Multiple Biopsies were taken with a cold forceps for histology. The entire examined stomach was normal. Biopsies were taken with a cold forceps for Helicobacter pylori testing. The examined duodenum was normal. No biopsies or other specimens were collected for this exam. Impression: - [place]-colored mucosa. Biopsied. - Normal stomach. Biopsied. - Normal examined duodenum. No specimens collected. Recommendation: - Discharge patient to home. - Resume previous diet. - Continue present medications. - Await pathology results. - Repeat upper endoscopy in 5 years for surveillance. - Return to my office in 1 week. Procedure Code(s): --- Professional --- 41469, Esophagogastroduodenoscopy, flexible, transoral; with biopsy, single or multiple Diagnosis Code(s): --- Professional --- K22.70, Dee's esophagus without dysplasia R13.14, Dysphagia, pharyngoesophageal phase R11.2, Nausea with vomiting, unspecified CPT copyright 2017 [employer]. All rights reserved. The codes documented in this report are preliminary and upon exchange trouble shooter review may be revised to meet current compliance requirements. MD Kleber Fernandez MD 03/22/2020 9:15:32 AM This report has been signed electronically. Number of Addenda: 0 Note Initiated On: 03/22/2020 8:53 AM
--- NOTE | 2020-03-22 09:16 | OP.CCLET_ITS ---
03/22/2020 Linsey Medley [address] [id number] Re : Upper GI endoscopy procedure for Douglas Davenportroseland Dear Dr. Medley This procedure was performed on Sunday, March 22, 2020. My impressions and recommendations are as follows: Impressions : - [place]-colored mucosa. Biopsied. - Normal stomach. Biopsied. - Normal examined duodenum. No specimens collected. Recommendations : - Discharge patient to home. - Resume previous diet. - Continue present medications. - Await pathology results. - Repeat upper endoscopy in 5 years for surveillance. - Return to my office in 1 week. My findings are described in the full procedure note, which is enclosed. If I can be of further assistance, please feel free to contact me at Doctor phone number(s): , Fax: [phone], Work: . Sincerely, MD Kleber Fernandez MD 03/22/2020 9:15:32 AM This report has been signed electronically.
[2020-03-22 09:20] VITALS: BP 106/65; BP 120/79; PULSE 53; RESP 16; O2SAT 94
[2020-03-22 09:25] VITALS: BP 110/56; BP 120/79; PULSE 46; RESP 16; O2SAT 98
--- NOTE | 2020-03-22 09:27 | SUR.PHASEI ---
HR 45-50'S IN PACU, COMPLETELY ASYMPTOMATIC. WAS REPORTEDLY IN 50'S THROUGHOUT ENDO CASE PER WENCESLAO ROUSE. VITALS OTHERWISE STABLE. DOES TAKE TOPROL. DR WEIR AWARE, CONTINUE CURRENT CARE PLAN.
[2020-03-22 09:29] VITALS: BP 111/72; BP 120/79; PULSE 47; RESP 16; TEMP 36; O2SAT 97
[2020-03-22 09:57] VITALS: BP 115/78; BP 120/79; PULSE 47; RESP 16; TEMP 36.1; O2SAT 98
== END 2020-03-22 10:08 | disposition home or self-care (01) ==
LOC: EN 07:59 → AC 08:00
PROVIDERS: Anesthesiology; PCP Internal Medicine; Referring Provider Internal Medicine; Visit Provider Surgery
PROC: 0DJ08ZZ Inspection of Upper Intestinal Tract, Via Natural or Artificial Opening Endoscopic (ICD-10-PCS; CPT 43235; principal; 2020-03-22 08:55)
DX: K22.70 Barrett's esophagus without dysplasia (principal); Z79.899 Other long term (current) drug therapy; K21.9 Gastro-esophageal reflux disease without esophagitis; I10 Essential (primary) hypertension; R13.14 Dysphagia, pharyngoesophageal phase; R11.2 Nausea with vomiting, unspecified; J44.9 Chronic obstructive pulmonary disease, unspecified; G89.29 Other chronic pain; F41.9 Anxiety disorder, unspecified; C85.90 Non-Hodgkin lymphoma, unspecified, unspecified site; F17.200 Nicotine dependence, unspecified, uncomplicated
CPT/HCPCS: 43239; 87635; 88305; 88313; 88342; G2023; J7120; J2405; U0003

== ENCOUNTER 2021-01-02 19:58 | Emergency (ER) | payer MEDICARE, SELFPAY ==
[2021-01-02 19:59] VITALS: BP 139/95; PULSE 75; RESP 18; TEMP 36; O2SAT 96; BMI 28.9
--- NOTE | 2021-01-02 20:14 | CT_ITS ---
STUDY: CT ABDOMEN AND PELVIS WITH CONTRAST REASON FOR EXAM: Male, 50 years old. left sided abdominal pain x 3 days RADIATION DOSAGE (If Supplied By Facility): CTDIvol = ( 17.75 ) mGy, DLP = ( 1251.61 ) mGycm TECHNIQUE: Transaxial images were obtained from the dome of the diaphragm to the symphysis pubis without oral contrast. IV 100mL Isovue-370 was administered. Sagittal and coronal images were reconstructed. Individualized dose optimization techniques were used for this CT. COMPARISON: None. FINDINGS: The visualized lung bases are unremarkable. The visualized portions of the heart are within normal limits. Normal liver. The gallbladder is contracted. Normal spleen. Normal pancreas. Normal right adrenal gland. Small nodule within the left adrenal gland measuring 1.3 x 1.4 cm, incompletely characterized by current exam. Right perinephric stranding. Multiple low-attenuation structures within the right kidney largest measuring 1.3 cm and consistent with simple cysts. Otherwise normal right kidney. Left perinephric stranding otherwise normal left kidney. Normal visualized stomach. Normal small intestine. There are multiple colonic diverticula consistent with diverticulosis. The appendix is visualized and appears normal. There is diffuse atherosclerotic calcification of the abdominal aorta, without a demonstrated aneurysm. Normal inferior vena cava. Normal retroperitoneum. Normal urinary bladder. Normal visualized prostate gland. Small bilateral fat-containing inguinal hernias. There are mild degenerative changes of the visualized lumbar spine. Small calcified injection granuloma within the right posterolateral buttock region measuring 1.5 cm. Questionable postoperative changes through the anterior abdominal wall for presumed hernia repair. CT/Abdomen/Pelvis W IV Cont ONLY IMPRESSION: No acute appendicitis.Diverticulosis with no signs of diverticulitis. No bowel obstruction. Small left-sided adrenal lesion incompletely characterized by current exam. If indicated, this may be further assessed with CT or MRI adrenal mass protocol. Right-sided simple renal cysts with perinephric stranding. Remainder of abdominal viscera are unremarkable. Electronically Signed: Lupe Baird MD at 22:34 EDT , Service support ,
--- NOTE | 2021-01-02 20:14 | ED.DCSUM_ITS ---
History of Present Illness Chief Complaint: Flank Pain Informant: Patient Narrative: 50-year-old male with history of diverticulitis and surgical repair by Dr. Brunilda cortez. Patient is complaining of left-sided flank pain which has been ongoing for 3 days. He feels this is a flare of diverticulitis. Patient does admit he is been constipated for a few days. He has associated nausea without vomiting. He is not had fever or chills. He denies dysuria. No history of kidney stones. Patient states he did have a bowel movement this morning. He does not have diarrhea or black or bloody stools. - Past Medical History (1) COPD (chronic obstructive pulmonary disease) Status: Chronic (2) Anxiety Status: Chronic (3) Chronic pain disorder Status: Chronic Past Medical History - Allergies and Home Meds Allergies/Adverse Reactions: Allergies hydrocodone bitartrate [From Vicodin] Adverse Reaction (Verified 03/08/20 13:18) Nausea Primary Care Physician: Linsey Medley MD [Primary Care Provider] - Surgical History: - - Bowel resection secondary to diverticulitis, hernia repair. Smoking Status: Current every day smoker - Family History Maternal Family History: Family History (Last Reviewed 03/08/20 @ 13:[address] Kleber Worley MD) Mother No problems noted. Father Diabetes Hypertension Heart disease Myocardial infarction Brother Asthma Family History: Reports: No pertinent history Paternal Family History: Family History (Last Reviewed 03/08/20 @ 13:[address] Kleber Worley MD) Mother No problems noted. Father Diabetes Hypertension Heart disease Myocardial infarction Brother Asthma Family History: Reports: Diabetes, Hypertension Physical Exam Vital Signs/Narrative: Vital Signs Temp Pulse Resp BP Pulse Ox 01/02/21 19:59 96.8 F L 75 18 139/95 H 96 Diagnostic/Tx/Re-eval Clinical Impression(s) from Imaging Studies Abdomen/Pelvis CT 01/02/21 20:14 IMPRESSION: No acute appendicitis.Diverticulosis with no signs of diverticulitis. No bowel obstruction. Small left-sided adrenal lesion incompletely characterized by current exam. If indicated, this may be further assessed with CT or MRI adrenal mass protocol. Right-sided simple renal cysts with perinephric stranding. Remainder of abdominal viscera are unremarkable. Electronically Signed: Lupe Baird MD at 22:34 EDT , Service support , Laboratory Data 01/02/21 01/02/21 01/02/21 20:21 20:21 21:50 WBC 9.8 RBC 5.53 Hgb 16.8 H Hct 48.5 MCV 87.7 MCH 30.4 MCHC 34.6 RDW Std Deviation 39.0 RDW Coeff of Migd[place] 12.1 Plt Count 269 MPV 11.7 Immature Gran % (Auto) 0.200 Neut % (Auto) 64.4 Lymph % (Auto) 21.7 [place] % (Auto) 10.1 H Eos % (Auto) 2.8 Baso % (Auto) 0.8 Absolute Neuts (auto) 6.3 Absolute Lymphs (auto) 2.13 Nucleated RBC % 0 Differential Comment SCANNED Sodium 138 Potassium 3.5 Chloride 104 Carbon Dioxide 30.0 Anion Gap 4 L BUN 16 Creatinine 1.48 H Estim Creat Clear Calc 64.08 Est GFR (MDRD) Af Amer 64 Est GFR (MDRD) Non-Af 53 L BUN/Creatinine Ratio 10.8 Glucose 100 Calcium 8.9 Total Bilirubin 0.70 AST 41 H ALT 53 Alkaline Phosphatase 110 Total Protein 7.2 Albumin 4.3 Globulin 2.9 Albumin/Globulin Ratio 1.5 Urine Color Yellow Urine Clarity Clear Urine pH 6.0 Ur Specific [place] 1.010 Urine Protein Negative Urine Glucose (UA) Normal Urine Ketones Negative Urine Occult Blood Negative Urine Nitrite Negative Urine Bilirubin Negative Urine Urobilinogen Normal Ur Leukocyte Esterase Negative Urine RBC 0 SEEN Urine WBC 0 SEEN Ur Squamous Epith Cells 0 SEEN Urine Bacteria 0 SEEN Urine Mucus 0 SEEN - Medical Decision Making 50-year-old male presenting with left flank pain. He states this has been worsening over the last couple of days. He states he was concerned for diverticulitis however his pain is more lateral in the flank. It is reproducible by touch but he does not have CVA tenderness. Patient had lab work which is fairly unremarkable. His electrolytes are normal and his renal function is at baseline. He has no leukocytosis. CT of the abdomen pelvis does not show any diverticulitis but does identify some lesion on the left renal gland which is incompletely characterized. This is not where the patient's pain is however. She was counseled he needs to follow-up with this outpatient. He acknowledged understanding. Patient stable discharge at this time Impression: 1. Left flank pain ED Disposition - Plan for ED Patient: Disposition: Home or Assisted Living Instructions: ED Flank Pain, Uncertain Cause Referrals: Linsey Medley MD [Primary Care Provider] -
[2021-01-02 20:31] LABS: Absolute Lymphocyte Count 2.13 X10^3/uL (0.83-4.51); Absolute Neutrophil Count 6.3 X10^3/uL (2.0-7.7); Basophil# 0.08 X10^3/uL; Basophil% 0.8 % (0-1); Eosinophil# 0.28 X10^3/uL; Eosinophils% 2.8 % (0-5); Hematocrit 48.5 % (40-54); Hemoglobin 16.8 g/dL (13.0-16.5); Lymphocyte # 2.13 X10^3/ul (4.0); Lymphocyte % 21.7 % (19-41); Mean Corp Hgb Conc 34.6 g/dL (32-36); Mean Corpuscular Hgb 30.4 pg (27.0-32.0); Mean Corpuscular Volume 87.7 fL (80-94); Mean Platelet Vol. 11.7 fl (6.2-12.0); Monocyte# 0.99 X10^3/uL; Monocyte% 10.1 % (0-10); NRBC Flagged by Analyzer 0 % (0-5); Neutrophil # 6.33 X10^3/uL (2.7-7.7); Neutrophil % 64.4 % (47-70); POSITIVE MORPHOLOGY YES; Platelet Count 269 K/mm3 (150-450); RBC Distribution Width CV 12.1 % (11.6-14.6); Red Blood Count 5.53 M/mm3 (4.6-6.2); White Blood Count 9.8 K/mm3 (4.4-11.0)
[2021-01-02 20:33] LABS: Differential Indicated SCAN CRITERIA MET
[2021-01-02 21:01] LABS: ALB/GLOB Ratio 1.5 RATIO (0.9-2.4); AST(SGOT) 41 U/L (15-37); Alanine Aminotransfer ALT/SGPT 53 U/L (16-61); Albumin, Serum 4.3 g/dL (3.2-5.0); Alkaline Phosphatase 110 U/L (45-117); Anion Gap 4 (5-15); BUN 16 mg/dL (7-18); BUN/Creat Ratio 10.8 RATIO (10-20); Calcium,Total 8.9 mg/dL (8.5-10.1); Chloride 104 mmol/L (98-107); Creatinine, Serum 1.48 mg/dL (0.70-1.30); Differential Comment SCANNED; EST Glomerular Filtration Rate 53 mL/min (>60); Est Glom Filt Rate - Afr Amer 64 mL/min (>60); Estimated Creatinine Clearance 64.08 ml/min; Globulin 2.9 g/dL (2.2-4.2); Glucose 100 mg/dL (74-106); Potassium 3.5 mmol/L (3.5-5.1); Protein, Total 7.2 g/dL (6.4-8.2); Sodium Level 138 mmol/L (136-145)
[2021-01-02 21:59] LABS: Bacteria 0 SEEN /hpf (None Seen); Mucous, Urine 0 SEEN /hpf (<or=2+); Red Blood Cells-Urine 0 SEEN /hpf (0-5); Squamous Epithelial Cells - UA 0 SEEN /hpf (0-5); White Blood Cells 0 SEEN /hpf (0-5)
[2021-01-02 22:02] LABS: Color, Urine Yellow (Yellow); Glucose, Dipstick Normal (Normal); Ketone-Dipstick Negative (Negative); Leukocyte Esterase-Dipstick Negative /ul (Negative); Nitrite-Dipstick Negative (Negative); Occult Blood-Urine Negative /ul (Negative); Protein-Dipstick Negative (Negative); Urine Bilirubin Dipstick Negative (Negative); Urine Clarity Clear (Clear); Urine Urobilinogen Normal (Normal)
[2021-01-02 23:00] VITALS: BP 125/71; PULSE 56; RESP 16; O2SAT 97
== END 2021-01-02 23:01 | disposition home or self-care (01) ==
PROVIDERS: Emergency Provider Student in an Organized Health Care Education/Training Program; PCP Internal Medicine
DX: R10.9 Unspecified abdominal pain (principal); F17.200 Nicotine dependence, unspecified, uncomplicated
CPT/HCPCS: 74177; 80053; 81001; 85025; 99285; J7050; Q9967; A4216

== ENCOUNTER 2021-06-27 02:07 | Emergency (ER) | payer MEDICARE, SELFPAY ==
[2021-06-27 02:08] VITALS: BP 116/81; PULSE 84; RESP 17; TEMP 36.6; O2SAT 96; BMI 25.7
--- NOTE | 2021-06-27 02:25 | CT_ITS ---
STUDY: CT ABDOMEN AND PELVIS WITH CONTRAST REASON FOR EXAM: Male, 51 years old. LLQ pain RADIATION DOSAGE (If Supplied By Facility): CTDIvol = ( 14.32 ) mGy, DLP = ( 1058.72 ) mGycm TECHNIQUE: Transaxial images were obtained from the dome of the diaphragm to the symphysis pubis without oral contrast. IV 100mL Isovue-370 was administered. Sagittal and coronal images were reconstructed. Individualized dose optimization techniques were used for this CT. COMPARISON: 05/04/2021 FINDINGS: The visualized lung bases are unremarkable. The visualized portions of the heart are within normal limits. Normal liver. Normal gallbladder and extrahepatic biliary system. Normal spleen. Normal pancreas. Normal right adrenal gland. Left adrenal nodule redemonstrated. Normal right kidney. Right renal cysts. Normal left kidney. Normal visualized stomach. Normal small intestine. Anastomotic sutures in the sigmoid colon. Scattered colonic diverticula without finding of acute diverticulitis. The appendix is visualized and appears normal. Normal abdominal aorta. Normal inferior vena cava. Normal retroperitoneum. Normal urinary bladder. There are prostatic calcifications. Normal abdominal wall. There are degenerative changes of the visualized lumbar spine. CT/Abdomen/Pelvis W IV Cont ONLY IMPRESSION: Colonic diverticula without finding of diverticulitis. No acute abnormal finding. Electronically Signed: Kevin Brown MD at 4:37 EDT Tel , Service support ,
--- NOTE | 2021-06-27 02:26 | ED.VIS.GI ---
HPI HPI - GI History of Present Illness Chief Complaint: Abd Pain Informant: patient Narrative Narrative: Patient's been having left lower quadrant pain since February. It was waxing and waning. He finally saw his physician had a CAT scan at another facility the beginning of May. This showed diverticulitis but no abscess. No perforation. He was started on what sounds like either amoxicillin or Augmentin. He was placed on it for 10 days. His symptoms started to come back a couple days later so they put him on 5 more days worth. He is now been off antibiotics for couple days and the symptoms are coming back again. He has had issues with diverticulitis off and on for about 18 years. In 2006 he had a partial colectomy due to ruptured diverticula. He has had prior admissions. He has a history of a non-Hodgkin's variant lymphoma but has been in remission since 2015 and is not on any immunosuppressive drugs. He also has a history of chronic abdominal cramping and pain likely from fentanyl patches and oral oxycodone that he takes for pain. He was chronic nausea that he takes Zofran or Phenergan for. He thinks it got worse a little bit today because he ate a much guzmán meal and he also pulled very hard while he was getting a starter out of the vehicle and feels he may have strained his abdomen a bit. [facility] Medical History (Updated 06/27/21 @ 05:[address] Yves Levine MD) Anxiety Chronic pain disorder COPD (chronic obstructive pulmonary disease) Diverticular disease GERD (gastroesophageal reflux disease) Hypertension Insomnia Lymphoma Lymphosarcoma Marijuana use Nausea Tobacco dependence Home Medications albuterol sulfate 2 puff INHALATION Q6H PRN PRN 07/18/14 [History Last Taken 02/19/18] ibuprofen 800 mg PO TID PRN PRN 07/18/14 [History Last Taken 09/15/19] metoprolol succinate 100 mg PO DAILY 07/18/14 [History Last Taken 03/22/20 07:30] omeprazole 20 mg PO BID 07/18/14 [History Last Taken 09/15/19] promethazine 25 mg PO Q6H PRN PRN #10 tab 01/17/17 [Rx Last Taken 09/15/19] amlodipine 10 mg PO DAILY 03/23/17 [History Last Taken 03/22/20 07:30] clonazepam 0.5 mg PO BID 02/23/18 [History Last Taken 09/15/19] bupropion HCl 150 mg PO DAILY 09/15/19 [History Last Taken 09/15/19] folic acid 0.8 mg PO DAILY 09/15/19 [History Last Taken 09/15/19] hydrochlorothiazide 25 mg PO DAILY 09/15/19 [History Last Taken 09/15/19] oxycodone 10 mg PO TID 09/15/19 [History Last Taken 09/14/19] budesonide-formoterol HFA 160 mcg-4.5 mcg/actuation aerosol inhaler 2 puff INHALATION BID 03/08/20 [History Last Taken Unknown] cholecalciferol (vitamin D3) 125 mcg (5,000 unit) capsule 1 ea PO DAILY 03/08/20 [History Last Taken Unknown] ketoconazole 2 % topical cream 1 ea TOPICAL DAILY PRN 03/08/20 [History Last Taken Unknown] fentanyl 75 mcg TRANSDERM. Q72H 03/10/20 [History Last Taken Unknown] Allergy/AdvReac Type Severity Reaction Status Date / Time hydrocodone bitartrate AdvReac Nausea Verified 06/27/21 02:19 [From Vicodin] Family History Mother No problems noted. Father Diabetes Hypertension Heart disease Myocardial infarction Brother Asthma Surgical History H/O removal of cyst History of incisional hernia repair History of partial colectomy history of port insertion History of removal of Port-a-Cath S/P colonoscopy Social History Smoking Status: Current every day smoker tobacco type: cigarettes alcohol intake: current substance use type: does not use caffeine: No what type of physical activity do you participate in: none frequency: does not exercise seatbelt use: always ROS ROS ED Constitutional Constitutional ED: Denies chills or fever(s) ENT ENT ED: Denies rhinorrhea or sore throat Cardiovascular Cardiovascular: Denies palpitations Respiratory/Chest Respiratory/Chest: Denies cough or dyspnea Gastrointestinal Gastrointestinal: Reports abdominal pain, constipation and nausea; Denies diarrhea, melena or vomiting Genitourinary Genitourinary ED: Denies dysuria, hematuria or urinary frequency Musculoskeletal Musculoskeletal: Denies arthralgias or myalgias Integumentary Denies rash Neurologic Neurologic: Denies weakness Psychiatric Psychiatric: Reports anxiety Endocrine Endocrinology: Denies polydipsia or polyuria Hematologic/Lymphatic Hematologic/Lymphatic: Denies easy bleeding or easy bruising Allergic/Immunologic Allergic/Immunologic ED: Denies urticaria EXAM Physical Exam Const Vital Signs: 06/27/21 02:08 06/27/21 04:21 Temperature 97.8 F Temperature Source Temporal Pulse Rate 84 72 Respiratory Rate 17 16 Blood Pressure 116/81 H 129/82 H Blood Pressure Mean 92 97 Pulse Ox 96 98 Oxygen Delivery Method Room Air Room Air Positive well nourished and well developed General Appearance ED: well developed and NAD HEENT Reports dry mucous membranes Mouth ED: Yes dry mucous membranes Mouth: dry mucous membranes Eyes General Eye ED: Negative for pale conjunctiva or scleral icterus Resp normal respiratory effort and clear to auscultation bilaterally Cardio regular rate and regular rhythm GI non-distended and no masses GI Narrative: Mild tenderness near the left lower quadrant. But no rebound guarding or masses felt. No distention. No rashes. Auscultation: normoactive bowel sounds Palpation: soft and tender Back/Spine no CVA tenderness Neuro Sensorium / Orientation: alert Psych mental status grossly normal Skin Lesions: no lesions Rashes: no rashes MDM MDM MDM Narrative Medical decision making narrative: Patient's blood work showed normal white count. Creatinine was mildly high but he tends to run between about 1.4 and 2.0. So this is really at his baseline. CAT scan was done based on his story and exam. Happily this CAT scan shows no diverticulitis. I do not think he needs antibiotics. Patient was comfortable with the plan of increasing fiber and fluids and activity. He has had problems with constipation because the meds he takes. He will follow up with his private physician. Lab Data Attestation: I reviewed the patient's lab results. Labs: Laboratory Results - last 24 hr 06/27/21 06/27/21 02:40 02:40 WBC 10.5 RBC 5.57 Hgb 16.9 H Hct 49.2 MCV 88.3 MCH 30.3 MCHC 34.3 RDW Std Deviation 41.5 RDW Coeff of [place] 12.7 Plt Count 252 MPV 11.6 Immature Gran % (Auto) 0.300 Neut % (Auto) 63.5 Lymph % (Auto) 23.5 [place] % (Auto) 7.7 Eos % (Auto) 4.0 Baso % (Auto) 1.0 Absolute Neuts (auto) 6.6 Absolute Lymphs (auto) 2.46 Nucleated RBC % 0 Sodium 142 Potassium 3.8 Chloride 104 Carbon Dioxide 31.0 Anion Gap 7 BUN 21 H Creatinine 1.62 H Estim Creat Clear Calc 57.88 Est GFR (MDRD) Af Amer 58 L Est GFR (MDRD) Non-Af 48 L BUN/Creatinine Ratio 13.0 Glucose 111 H Calcium 8.6 Radiography Diagnostic Testing: Radiology Impression Abdomen/Pelvis CT 06/27/21 02:25 IMPRESSION: Colonic diverticula without finding of diverticulitis. No acute abnormal finding. Electronically Signed: Kevin Brown MD at 4:37 EDT Tel , Service support , Discharge Plan Triage Chief Complaint: Abd Pain ED Provider: Yves Levine Dx/Rx/DC Orders Clinical Impression: Abdominal pain Instructions: ED Abdominal Pain Unkn Cause Male... Prescriptions: No Action ketoconazole 2 % cream 1 ea TOPICAL DAILY PRN (Reason: Rash/Topical Irritation) RF: 0 cholecalciferol (vitamin D3) 125 mcg (5,000 unit) capsule 1 ea PO DAILY RF: 0 budesonide-formoterol 160-4.5 mcg/actuation HFA aerosol inhaler 2 puff INHALATION BID RF: 0 ibuprofen 800 MG tablet 800 mg PO TID PRN PRN (Reason: Pain) RF: 0 metoprolol succinate 100 MG tablet 100 mg PO DAILY RF: 0 omeprazole 20 MG capsule 20 mg PO BID RF: 0 albuterol sulfate 1 PUFF inhaler 2 puff INHALATION Q6H PRN PRN (Reason: BREATHING) RF: 0 promethazine 25 MG tablet 25 mg PO Q6H PRN PRN (Reason: Nausea) Qty: 10 RF: 0 amlodipine 10 MG tablet 10 mg PO DAILY RF: 0 clonazepam 0.5 tablet 0.5 mg PO BID RF: 0 bupropion HCl 150 MG tablet extended release 24 hr 150 mg PO DAILY RF: 0 hydrochlorothiazide 25 MG tablet 25 mg PO DAILY RF: 0 folic acid 0.8 MG tablet 0.8 mg PO DAILY RF: 0 oxycodone 10 MG tablet 10 mg PO TID RF: 0 fentanyl 75 MCG patch 75 mcg TRANSDERM. Q72H RF: 0 Primary Care Provider: Linsey Medley Referrals: Linsey Medley MD [Primary Care Provider] - 3-5 Days if not improving Disposition Disposition: Home, Self Care
[2021-06-27] MEDS: 0.9% Normal Saline 1,000 ML 1000 ML IV (03:10)
[2021-06-27 03:24] LABS: Absolute Lymphocyte Count 2.46 X10^3/uL (0.83-4.51); Absolute Neutrophil Count 6.6 X10^3/uL (2.0-7.7); Eosinophil# 0.42 X10^3/uL; Hematocrit 49.2 % (40-54); Hemoglobin 16.9 g/dL (13.0-16.5); Lymphocyte # 2.46 X10^3/ul (0.83-4.51); Lymphocyte % 23.5 % (19-41); Mean Corp Hgb Conc 34.3 g/dL (32-36); Mean Corpuscular Hgb 30.3 pg (27.0-32.0); Mean Corpuscular Volume 88.3 fL (80-94); Mean Platelet Vol. 11.6 fl (6.2-12.0); Monocyte# 0.81 X10^3/uL; Monocyte% 7.7 % (0-10); NRBC Flagged by Analyzer 0 % (0-5); Neutrophil # 6.64 X10^3/uL (2.7-7.7); Neutrophil % 63.5 % (47-70); Platelet Count 252 K/mm3 (150-450); RBC Distribution Width CV 12.7 % (11.6-14.6); RBC Distribution Width SD 41.5 fl (35.1-43.9); Red Blood Count 5.57 M/mm3 (4.6-6.2); White Blood Count 10.5 K/mm3 (4.4-11.0)
[2021-06-27 03:34] LABS: Anion Gap 7 (5-15); BUN 21 mg/dL (7-18); Calcium,Total 8.6 mg/dL (8.5-10.1); Chloride 104 mmol/L (98-107); Creatinine, Serum 1.62 mg/dL (0.70-1.30); EST Glomerular Filtration Rate 48 mL/min (>60); Est Glom Filt Rate - Afr Amer 58 mL/min (>60); Estimated Creatinine Clearance 57.88 ml/min; Glucose 111 mg/dL (74-106); Potassium 3.8 mmol/L (3.5-5.1); Sodium Level 142 mmol/L (136-145)
[2021-06-27 04:21] VITALS: BP 129/82; PULSE 72; RESP 16; O2SAT 98
[2021-06-27 04:33] LABS: Bacteria 0 SEEN /hpf (None Seen); Mucous, Urine 0 SEEN /hpf (<or=2+); Red Blood Cells-Urine 0 SEEN /hpf (0-5); Squamous Epithelial Cells - UA 0 SEEN /hpf (0-5); White Blood Cells 0 SEEN /hpf (0-5)
[2021-06-27 04:59] LABS: Color, Urine Yellow (Yellow); Glucose, Dipstick Normal (Normal); Ketone-Dipstick Negative (Negative); Leukocyte Esterase-Dipstick Negative /ul (Negative); Nitrite-Dipstick Negative (Negative); Occult Blood-Urine Negative /ul (Negative); Protein-Dipstick Negative (Negative); Urine Bilirubin Dipstick Negative (Negative); Urine Clarity Clear (Clear); Urine Urobilinogen Normal (Normal)
[2021-06-27 05:14] VITALS: BP 124/74; PULSE 72; RESP 16; O2SAT 97
== END 2021-06-27 05:26 | disposition home or self-care (01) ==
PROVIDERS: Emergency Provider Emergency Medicine; PCP Internal Medicine
DX: R10.32 Left lower quadrant pain (principal); F17.210 Nicotine dependence, cigarettes, uncomplicated; Z90.49 Acquired absence of other specified parts of digestive tract
CPT/HCPCS: 74177; 80048; 81001; 85025; 99283; J7030; Q9967; A4216

== ENCOUNTER 2023-03-26 15:25 | Emergency (ER) | payer MEDICARE, MEDICAID, SELFPAY ==
[2023-03-26 15:26] VITALS: BP 123/84; PULSE 75; RESP 16; TEMP 36.4; O2SAT 98; BMI 25.2
--- NOTE | 2023-03-26 15:34 | EKG12_ITS ---
Test Reason : ABN LABS Blood Pressure : / mmHG Vent. Rate : 074 BPM Atrial Rate : 074 BPM P-R Int : 196 ms QRS Dur : 082 ms QT Int : 448 ms P-R-T Axes : 030 002 032 degrees QTc Int : 497 ms Sinus rhythm with marked sinus arrhythmia Prolonged QT Abnormal ECG Confirmed by WILLA SINGH, MIREYA ([id number]), editor at large CAMILO GABRIEL ([id number]) on 03/27/2023 10:42:21 AM Referred By: Confirmed By:MIREYA CROUCH MD
--- NOTE | 2023-03-26 15:42 | EX.ED.DYSGE1 ---
HPI History of Present Illness Chief Complaint: Abn Labs Detail of Chief Complaint: Low potassium Informant: patient Narrative Narrative: Patient presents secondary to low potassium. He was seen by PCP this morning and had lab work obtained for 6-month checkup. He states he has a history of chronic low potassium and does take potassium supplements. He was called this afternoon and told his potassium was very low and he needed to come to the emergency room. Patient does report some paresthesias of his face over the past day or 2. He does take hydrochlorothiazide and a lot of heart medicine. He states he did have cardiac stents placed in November and had low potassium at that time as well but he does not remember the value. He reports having some intermittent palpitations for the last month or so. [facility] Medical History Acute bronchitis Anxiety Chronic pain disorder COPD (chronic obstructive pulmonary disease) COPD exacerbation Diverticular disease GERD (gastroesophageal reflux disease) Hypertension Insomnia Lymphoma Lymphosarcoma Marijuana use Nausea Tobacco dependence Home Medications albuterol sulfate 90 mcg/actuation aerosol inhaler 2 puff inhalation Q6H PRN PRN BREATHING 07/18/14 [History Last Taken 02/19/18] ibuprofen 800 mg tablet 800 mg PO TID PRN PRN Pain 07/18/14 [History Last Taken 09/15/19] metoprolol succinate 100 mg tablet,extended release 24 hr 100 mg PO DAILY blood pressure 07/18/14 [History Last Taken 03/22/20 07:30] omeprazole 20 mg capsule,delayed release 20 mg PO BID GERD 07/18/14 [History Last Taken 09/15/19] promethazine 25 mg tablet 25 mg PO Q6H PRN PRN Nausea ##10 01/17/17 [Rx Last Taken 09/15/19] amlodipine 10 mg tablet 10 mg PO DAILY Blood pressure 03/23/17 [History Last Taken 03/22/20 07:30] clonazepam 0.5 mg tablet 0.5 mg PO BID anxiety 02/23/18 [History Last Taken 09/15/19] bupropion HCl 150 mg 24 hr tablet, extended release 150 mg PO DAILY 09/15/19 [History Last Taken 09/15/19] folic acid 800 mcg tablet 0.8 mg PO DAILY supplement 09/15/19 [History Last Taken 09/15/19] hydrochlorothiazide 25 mg tablet 25 mg PO DAILY fluid 09/15/19 [History Last Taken 09/15/19] oxycodone 10 mg tablet 10 mg PO TID pain 09/15/19 [History Last Taken 09/14/19] budesonide-formoterol HFA 160 mcg-4.5 mcg/actuation aerosol inhaler 2 puff inhalation BID 03/08/20 [History Last Taken Unknown] cholecalciferol (vitamin D3) 125 mcg (5,000 unit) capsule 1 ea PO DAILY 03/08/20 [History Last Taken Unknown] ketoconazole 2 % topical cream 1 ea topical DAILY PRN Rash/Topical Irritation 03/08/20 [History Last Taken Unknown] fentanyl 75 mcg/hr transdermal patch 75 mcg TRANSDERM. Q72H 03/10/20 [History Last Taken Unknown] Allergy/AdvReac Type Severity Reaction Status Date / Time hydrocodone bitartrate AdvReac Nausea Verified 03/26/23 15:28 [From Vicodin] Family History Mother No problems noted. Father Diabetes Hypertension Heart disease Myocardial infarction Brother Asthma Surgical History H/O removal of cyst History of incisional hernia repair History of partial colectomy history of port insertion History of removal of Port-a-Cath S/P colonoscopy Social History Smoking Status: Former smoker alcohol intake: current substance use type: does not use caffeine: No what type of physical activity do you participate in: none frequency: does not exercise seatbelt use: always ROS ROS ED Constitutional Constitutional ED: Denies chills or fever(s) Eyes Eyes: Denies change in vision or discharge from eye(s) ENT ENT ED: Denies discharge from eye(s), rhinorrhea or sore throat Cardiovascular Cardiovascular: Reports palpitations; Denies chest pain Respiratory/Chest Respiratory/Chest: Denies cough or dyspnea Gastrointestinal Gastrointestinal: Denies abdominal pain, diarrhea, nausea or vomiting Genitourinary Genitourinary ED: Denies difficulty urinating or dysuria Musculoskeletal Musculoskeletal: Denies back pain or extremity pain Integumentary Denies Abrasions or rash Neurologic Neurologic: Denies headache(s) or weakness Psychiatric Psychiatric: Denies anxiety or depression Allergic/Immunologic Allergic/Immunologic ED: Denies lip swelling or urticaria EXAM Physical Exam Const Vital Signs: 03/26/23 15:26 03/26/23 15:44 03/26/23 18:32 Temperature 97.6 F L Temperature Source Temporal Pulse Rate 75 69 Respiratory Rate 16 17 Respiratory Effort Normal Non-Labored Respiratory Pattern Normal Blood Pressure 123/84 H 109/72 Blood Pressure Mean 97 84 Pulse Ox 98 95 Oxygen Delivery Method Room Air Room Air Positive well nourished and well developed General Appearance ED: well developed HEENT Reports normocephalic and head/scalp atraumatic Eyes PERRL and EOMs intact bilaterally Neck supple Chest Wall inspection of chest normal and palpation of chest normal Resp normal respiratory effort and clear to auscultation bilaterally Cardio regular rate and regular rhythm GI normal to inspection, nondistended, normoactive bowel sounds Palpation: soft Extremity normal to inspection Neuro oriented x3 and no sensory deficits noted Sensorium / Orientation: alert Motor Exam: strength 5/5 throughout Psych mental status grossly normal Skin no rashes or lesions noted MDM MDM MDM Narrative Medical decision making narrative: I did review the patient's outpatient labs from [facility]. His potassium was 2.7. His BUN is 27 and creatinine is 1.56. 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 EKG obtained and repeat BMP ordered. Magnesium also obtained. 40 milliequivalents of IV potassium chloride ordered. Lab Data Attestation: I reviewed the patient's lab results. Labs: Laboratory Results - last 24 hr 03/26/23 03/26/23 15:40 22:15 Sodium 137 140 Potassium 2.2 L* 2.5 L* Chloride 96 L 102 Carbon Dioxide 32.0 33.0 H Anion Gap 9 5 BUN 25 H 22 H Creatinine 1.94 H 1.50 H Estim Creat Clear Calc 47.78 61.79 Est GFR (MDRD) Af Amer 47 L 63 Est GFR (MDRD) Non-Af 38 L 52 L BUN/Creatinine Ratio 12.9 14.7 Glucose 118 H 130 H Calcium 7.2 L 7.3 L Magnesium 1.1 L 2.6 EKG Initial EKG: Attestation: I personally reviewed and interpreted this EKG as follows: Interpretation: Sinus Rhythm (Sinus at 74 bpm. No acute ischemia. PVC is 497.) Treatment and Re-Evaluation :: Initial BMP for me returns with a potassium level of 2.2. BUN is 25 and creatinine is 1.94. Magnesium is low at 1.1. Patient is given 4 g of IV magnesium along with 40 mEq of IV potassium chloride. 1 hour after IVs are completed repeat BMP and magnesium are obtained. Potassium is still low at 2.5. Magnesium is improved to 2.6. Patient has an appointment to see a emergency room tech at [facility] tomorrow. He states he is been waiting 3 months for this appointment and cannot miss it. He refuses hospital admission. We discussed risks of hypokalemia and he understands that cardiac arrhythmia and are possible. He signed out AGAINST MEDICAL ADVICE to go to his appointment tomorrow. Patient has been given a prescription for potassium at home. I advised him to make sure he is taking at least 40 mEq a day. I have also printed out his labs from today to take to his emergency room tech. I recommended he talk to the emergency room tech regarding his hydrochlorothiazide as well has what potassium replacement to take. Discharge Plan Triage Chief Complaint: Abn Labs ED Provider: Maria Teresa Sanchez Dx/Rx/DC Orders Clinical Impression: Hypokalemia Instructions: ED Hypokalemia Prescriptions: No Action ketoconazole 2 % cream 1 ea TOPICAL DAILY PRN (Reason: Rash/Topical Irritation) Patient Comments: APPLY TO AFFECTED AREA ONCE DAILY cholecalciferol (vitamin D3) 125 mcg (5,000 unit) capsule 1 ea PO DAILY Patient Comments: take 1 capsule by mouth once daily budesonide-formoterol 160-4.5 mcg/actuation HFA aerosol inhaler 2 puff INHALATION BID ibuprofen 800 MG tablet 800 mg PO TID PRN PRN (Reason: Pain) metoprolol succinate 100 MG tablet 100 mg PO DAILY omeprazole 20 MG capsule 20 mg PO BID albuterol sulfate 1 PUFF inhaler 2 puff INHALATION Q6H PRN PRN (Reason: BREATHING) promethazine 25 MG tablet 25 mg PO Q6H PRN PRN (Reason: Nausea) Qty: 10 0RF amlodipine 10 MG tablet 10 mg PO DAILY clonazepam 0.5 tablet 0.5 mg PO BID Patient Comments: bupropion HCl 150 MG tablet extended release 24 hr 150 mg PO DAILY hydrochlorothiazide 25 MG tablet 25 mg PO DAILY folic acid 0.8 MG tablet 0.8 mg PO DAILY Patient Comments: take 1 tablet by mouth once daily oxycodone 10 MG tablet 10 mg PO TID fentanyl 75 MCG patch 75 mcg TRANSDERM. Q72H Primary Care Provider: Linsey Medley Referrals: Linsey Medley MD [Primary Care Provider] - 5-7 Days Disposition Disposition: Against Medical Advice
[2023-03-26] MEDS: Potassium Chloride 10mEq/100mL 10 MEQ/100 ML IV.SOLN. 100 MEQ IV BOLUS ×4 (15:56→19:38)
[2023-03-26 16:24] LABS: Magnesium 1.1 mg/dL (1.6-2.6)
[2023-03-26 16:30] LABS: Anion Gap 9 (5-15); BUN 25 mg/dL (7-18); BUN/Creat Ratio 12.9 RATIO (10-20); Calcium,Total 7.2 mg/dL (8.5-10.1); Chloride 96 mmol/L (98-107); Creatinine, Serum 1.94 mg/dL (0.70-1.30); EST Glomerular Filtration Rate 38 mL/min (>60); Est Glom Filt Rate - Afr Amer 47 mL/min (>60); Estimated Creatinine Clearance 47.78 ml/min; Glucose 118 mg/dL (74-106); Potassium 2.2 mmol/L (3.5-5.1); Sodium Level 137 mmol/L (136-145)
[2023-03-26] MEDS: Magnesium Sulfate 4gm/100mL 4 GM/100 ML IV.SOLN. IV (16:57)
[2023-03-26 18:32] VITALS: BP 109/72; PULSE 69; RESP 17; O2SAT 95
[2023-03-26 22:59] LABS: Anion Gap 5 (5-15); BUN 22 mg/dL (7-18); BUN/Creat Ratio 14.7 RATIO (10-20); Calcium,Total 7.3 mg/dL (8.5-10.1); Chloride 102 mmol/L (98-107); EST Glomerular Filtration Rate 52 mL/min (>60); Est Glom Filt Rate - Afr Amer 63 mL/min (>60); Estimated Creatinine Clearance 61.79 ml/min; Glucose 130 mg/dL (74-106); Magnesium 2.6 mg/dL (1.6-2.6); Potassium 2.5 mmol/L (3.5-5.1); Sodium Level 140 mmol/L (136-145)
== END 2023-03-26 23:19 | disposition left against medical advice (07) ==
PROVIDERS: Emergency Provider Emergency Medicine; PCP Internal Medicine; Visit Provider Emergency Medicine
DX: E87.6 Hypokalemia (principal); Z87.891 Personal history of nicotine dependence
CPT/HCPCS: 80048; 83735; 93005; 96365; 96366; 96367; 99284; J7030; J7050; A4216

== ENCOUNTER 2023-11-25 20:22 | Emergency (ER) | payer MEDICARE, MEDICAID, SELFPAY ==
[2023-11-25 20:23] VITALS: BP 127/87; PULSE 73; RESP 16; TEMP 36.2; O2SAT 95; BMI 28.5
--- NOTE | 2023-11-25 20:26 | EKG12_ITS ---
Test Reason : CP Blood Pressure : / mmHG Vent. Rate : 057 BPM Atrial Rate : 057 BPM P-R Int : 176 ms QRS Dur : 076 ms QT Int : 438 ms P-R-T Axes : 052 003 023 degrees QTc Int : 426 ms Sinus bradycardia Otherwise normal ECG Confirmed by AUGUSTIN SINGH, SRIKANTH ([id number]), sound editor JULIANNE LUCIO ([id number]) on 12/01/2023 6:35:28 AM Referred By: Confirmed By:MARRY RUFFIN MD
--- NOTE | 2023-11-25 20:37 | RAD_ITS ---
STUDY: X-RAY CHEST REASON FOR EXAM: Male, 53 years old. chest pain TECHNIQUE: AP portable COMPARISON: September 16, 2019. FINDINGS: The lungs are clear and expanded. There is no demonstrated pleural abnormality. Normal size heart. Normal mediastinum and melva. Normal visualized pulmonary arteries. Mildly calcified aortic arch and descending thoracic aorta. Dorsal spine demonstrates mild degenerative change. Normal visualized ribs, clavicles, and shoulders. There is no demonstrated abnormality of the visualized soft tissue structures of the upper abdomen. RAD/Chest 1 View (Portable) IMPRESSION: No acute cardiopulmonary pathology Electronically Signed: Torey Lamar MD at 21:05 EST ,
[2023-11-25 20:57] LABS: Absolute Lymphocyte Count 1.73 X10^3/uL (0.83-4.51); Absolute Neutrophil Count 6.7 X10^3/uL (2.0-7.7); Basophil# 0.08 X10^3/uL; Basophil% 0.8 % (0-1); Eosinophil# 0.28 X10^3/uL; Eosinophils% 2.9 % (0-5); Hematocrit 46.2 % (40-54); Hemoglobin 15.5 g/dL (13.0-16.5); Lymphocyte # 1.73 X10^3/ul (0.83-4.51); Lymphocyte % 17.9 % (19-41); Mean Corp Hgb Conc 33.5 g/dL (32-36); Mean Corpuscular Hgb 29.9 pg (27.0-32.0); Mean Corpuscular Volume 89.2 fL (80-94); Mean Platelet Vol. 11.4 fl (6.2-12.0); Monocyte# 0.78 X10^3/uL; Monocyte% 8.1 % (0-10); NRBC Flagged by Analyzer 0 % (0-5); Neutrophil # 6.74 X10^3/uL (2.7-7.7); Neutrophil % 69.8 % (47-70); Platelet Count 255 K/mm3 (150-450); RBC Distribution Width CV 12.3 % (11.6-14.6); RBC Distribution Width SD 40.3 fl (35.1-43.9); Red Blood Count 5.18 M/mm3 (4.6-6.2); White Blood Count 9.7 K/mm3 (4.4-11.0)
[2023-11-25 21:16] LABS: Anion Gap 4 (5-15); BUN 17 mg/dL (7-18); BUN/Creat Ratio 13.7 RATIO (10-20); Calcium,Total 9.3 mg/dL (8.5-10.1); Chloride 111 mmol/L (98-107); Creatinine, Serum 1.24 mg/dL (0.70-1.30); EST Glomerular Filtration Rate 64 mL/min (>60); Est Glom Filt Rate - Afr Amer 78 mL/min (>60); Estimated Creatinine Clearance 80.64 ml/min; Glucose 122 mg/dL (74-106); Potassium 4.1 mmol/L (3.5-5.1); Sodium Level 141 mmol/L (136-145); Troponin-I HS (w/2H Reflex) 7 pg/mL (3.0-78.0)
[2023-11-25 21:22] VITALS: BP 144/91; PULSE 56; RESP 16; O2SAT 96
[2023-11-25 22:22] VITALS: BP 138/87; PULSE 55; RESP 18; O2SAT 95
[2023-11-25 22:43] VITALS: O2SAT 96
[2023-11-25 22:48] LABS: Reflex Troponin-HS? (from REC) Y
[2023-11-25 23:22] VITALS: BP 144/86; PULSE 56; RESP 14; O2SAT 96
--- NOTE | 2023-11-25 23:24 | EDS_ITS ---
HPI History of Present Illness Chief Complaint: Chest Pain Informant: patient Onset/Context/Timing Onset: Today Narrative Narrative: Patient presents secondary to chest pain. He has a history of coronary artery disease and had 3 stents placed to the LAD in November of last year. He states over the last year he has had intermittent chest pain and will occasionally take nitro. At 730 this evening he was sitting with family when he got sharp pain in the left chest. He states he did break out in a sweat. He took 3 nitro. Over course of 20 minutes or so pain improved. He states he still has a slight uncomfortable sensation in his chest, but nothing as severe as what he had earlier this evening. Patient does state that he had a repeat heart cath last fall. 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 Patient had a heart cath performed on July 30 that revealed limited plaque disease, most severe stenosis is 30 to 40% mid proximal LAD stenosis and a pr eviously placed stent. EF is approximately 55%. Elevated end-diastolic pressure was noted. [facility] Medical History (Updated 11/26/23 @ 00:[address] Maria Teresa Sanchez MD) Acute bronchitis Anxiety Chronic pain disorder COPD (chronic obstructive pulmonary disease) Diverticular disease GERD (gastroesophageal reflux disease) Hypertension Insomnia Lymphoma Lymphosarcoma Marijuana use Nausea Tobacco dependence Home Medications albuterol sulfate 90 mcg/actuation aerosol inhaler 2 puff inhalation Q6H PRN PRN BREATHING 07/18/14 [History Last Taken 02/19/18] ibuprofen 800 mg tablet 800 mg PO TID PRN PRN Pain 07/18/14 [History Last Taken 09/15/19] metoprolol succinate 100 mg tablet,extended release 24 hr 100 mg PO DAILY blood pressure 07/18/14 [History Last Taken 03/22/20 07:30] omeprazole 20 mg capsule,delayed release 20 mg PO BID GERD 07/18/14 [History Last Taken 09/15/19] promethazine 25 mg tablet 25 mg PO Q6H PRN PRN Nausea ##10 01/17/17 [Rx Last Taken 09/15/19] amlodipine 10 mg tablet 10 mg PO DAILY Blood pressure 03/23/17 [History Last Taken 03/22/20 07:30] clonazepam 0.5 mg tablet 0.5 mg PO BID anxiety 02/23/18 [History Last Taken 09/15/19] bupropion HCl 150 mg 24 hr tablet, extended release 150 mg PO DAILY 09/15/19 [History Last Taken 09/15/19] folic acid 800 mcg tablet 0.8 mg PO DAILY supplement 09/15/19 [History Last Taken 09/15/19] hydrochlorothiazide 25 mg tablet 25 mg PO DAILY fluid 09/15/19 [History Last Taken 09/15/19] oxycodone 10 mg tablet 10 mg PO TID pain 09/15/19 [History Last Taken 09/14/19] budesonide-formoterol HFA 160 mcg-4.5 mcg/actuation aerosol inhaler 2 puff inhalation BID 03/08/20 [History Last Taken Unknown] cholecalciferol (vitamin D3) 125 mcg (5,000 unit) capsule 1 ea PO DAILY 03/08/20 [History Last Taken Unknown] ketoconazole 2 % topical cream 1 ea topical DAILY PRN Rash/Topical Irritation 03/08/20 [History Last Taken Unknown] fentanyl 75 mcg/hr transdermal patch 75 mcg TRANSDERM. Q72H 03/10/20 [History Last Taken Unknown] Allergy/AdvReac Type Severity Reaction Status Date / Time hydrocodone bitartrate AdvReac Nausea Verified 03/26/23 15:28 [From Vicodin] Family History Mother No problems noted. Father Diabetes Hypertension Heart disease Myocardial infarction Brother Asthma Surgical History H/O removal of cyst History of incisional hernia repair History of partial colectomy history of port insertion History of removal of Port-a-Cath S/P colonoscopy Social History Smoking Status: Former smoker alcohol intake: current substance use type: does not use caffeine: No what type of physical activity do you participate in: none frequency: does not exercise seatbelt use: always ROS ROS ED Constitutional Constitutional ED: Denies chills or fever(s) Eyes Eyes: Denies discharge from eye(s) ENT ENT ED: Denies discharge from eye(s), rhinorrhea or sore throat Cardiovascular Cardiovascular: Reports chest pain; Denies palpitations Respiratory/Chest Respiratory/Chest: Denies cough or dyspnea Gastrointestinal Gastrointestinal: Denies abdominal pain, nausea or vomiting Genitourinary Genitourinary ED: Denies dysuria Musculoskeletal Musculoskeletal: Denies back pain or extremity pain Integumentary Denies Abrasions or rash Neurologic Neurologic: Denies headache(s) or weakness Psychiatric Psychiatric: Denies anxiety or depression Allergic/Immunologic Allergic/Immunologic ED: Denies lip swelling or urticaria EXAM Physical Exam Const Vital Signs: 11/25/23 20:23 11/25/23 22:43 11/25/23 21:22 Temperature 97.1 F L Temperature Source Temporal Pulse Rate 73 56 L Respiratory Rate 16 16 Respiratory Effort Blood Pressure 127/87 H 144/91 H Blood Pressure Mean 100 108 Pulse Ox 95 96 96 Oxygen Delivery Method Room Air Room Air 11/25/23 22:22 11/25/23 23:22 11/25/23 23:15 Temperature Temperature Source Pulse Rate 55 L 56 L Respiratory Rate 18 14 Respiratory Effort Normal Non-Labored Blood Pressure 138/87 H 144/86 H Blood Pressure Mean 104 105 Pulse Ox 95 96 Oxygen Delivery Method Room Air Room Air Positive well nourished and well developed General Appearance ED: well developed HEENT Reports moist mucous membranes Eyes EOMs intact bilaterally Chest Wall inspection of chest normal and palpation of chest normal Resp normal respiratory effort and clear to auscultation bilaterally Cardio regular rate and regular rhythm GI soft to palpation and non-tender Extremity normal to inspection Neuro oriented x3 and no sensory deficits noted Sensorium / Orientation: awake and alert Motor Exam: strength 5/5 throughout Psych mental status grossly normal Skin no rashes or lesions noted MDM MDM MDM Narrative Medical decision making narrative: Patient placed on playground monitor. EKG obtained to evaluate for cardiac arrhythmia/ischemia. Chest x-ray obtained to evaluate for acute lung pathology, cardiac size, or mediastinal abnormality. IV line initiated. Labwork obtained to evaluate for leukocytosis, anemia, and electrolyte derangement. He did take aspirin prior to arrival. History & Record Review Discussion w/independent historian: Patient and Significant other Additional record(s) reviewed:: Prior outpatient record Lab Data Attestation: I reviewed the patient's lab results. Labs: Laboratory Results - last 24 hr 11/25/23 11/25/23 11/25/23 20:40 22:48 23:40 WBC 9.7 RBC 5.18 Hgb 15.5 Hct 46.2 MCV 89.2 MCH 29.9 MCHC 33.5 RDW Std Deviation 40.3 RDW Coeff of [place] 12.3 Plt Count 255 MPV 11.4 Immature Gran % (Auto) 0.500 Neut % (Auto) 69.8 Lymph % (Auto) 17.9 L [place] % (Auto) 8.1 Eos % (Auto) 2.9 Baso % (Auto) 0.8 Absolute Neuts (auto) 6.7 Absolute Lymphs (auto) 1.73 Nucleated RBC % 0 Sodium 141 Potassium 4.1 Chloride 111 H Carbon Dioxide 26.0 Anion Gap 4 L BUN 17 Creatinine 1.24 Estim Creat Clear Calc 80.64 Est GFR (MDRD) Af Amer 78 Est GFR (MDRD) Non-Af 64 BUN/Creatinine Ratio 13.7 Glucose 122 H Calcium 9.3 Troponin I High Sens 7 Cancelled 10 Radiography Chest X-Ray - ED: 1 View, Read by ED Physician, Normal, Heart, Lungs and Mediastinum Diagnostic Testing: Clinical Impression(s) from Imaging Studies Chest X-Ray 11/25/23 20:37 IMPRESSION: No acute cardiopulmonary pathology Electronically Signed: Torey Lamar MD at 21:05 EST Reading Location ID and State: [facility] / [place] Tel , Service support , EKG Initial EKG: Attestation: I personally reviewed and interpreted this EKG as follows: Interpretation: Sinus Bradycardia (Sinus bradycardia 57 bpm. No acute ischemia.) Treatment and Re-Evaluation :: CBC was normal white count 9.7 with a hemoglobin of 15.5. Normal differential. Chemistry studies reveal a BUN of 17 and a creatinine 1.24. Initial troponin is 7. Portable chest x-ray per my interpretation reveals no acute abnormalities. Radiology interpretation reviewed and agrees. EKG is sinus bradycardia with no acute ischemia. 2-hour repeat troponin is normal at 10 delta of 3. On repeat examination patient remains comfortable at this time. 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 He is comfortable with this plan and return instructions are provided. Discharge Plan Triage Chief Complaint: Chest Pain ED Provider: Sanchez,Maria Teresa Dx/Rx/DC Orders Clinical Impression: Chest pain Instructions: ED Chest Pain, Uncertain Cause Prescriptions: No Action ketoconazole 2 % cream 1 ea TOPICAL DAILY PRN (Reason: Rash/Topical Irritation) Patient Comments: APPLY TO AFFECTED AREA ONCE DAILY cholecalciferol (vitamin D3) 125 mcg (5,000 unit) capsule 1 ea PO DAILY Patient Comments: take 1 capsule by mouth once daily budesonide-formoterol 160-4.5 mcg/actuation HFA aerosol inhaler 2 puff INHALATION BID ibuprofen 800 MG tablet 800 mg PO TID PRN PRN (Reason: Pain) metoprolol succinate 100 MG tablet 100 mg PO DAILY omeprazole 20 MG capsule 20 mg PO BID albuterol sulfate 1 PUFF inhaler 2 puff INHALATION Q6H PRN PRN (Reason: BREATHING) promethazine 25 MG tablet 25 mg PO Q6H PRN PRN (Reason: Nausea) Qty: 10 0RF amlodipine 10 MG tablet 10 mg PO DAILY clonazepam 0.5 tablet 0.5 mg PO BID Patient Comments: bupropion HCl 150 MG tablet extended release 24 hr 150 mg PO DAILY hydrochlorothiazide 25 MG tablet 25 mg PO DAILY folic acid 0.8 MG tablet 0.8 mg PO DAILY Patient Comments: take 1 tablet by mouth once daily oxycodone 10 MG tablet 10 mg PO TID fentanyl 75 MCG patch 75 mcg TRANSDERM. 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 Disposition Disposition: Home, Self Care
[2023-11-26 00:07] LABS: Troponin-I HS 10 pg/mL (3.0-78.0)
[2023-11-26 00:15] VITALS: BP 141/73; PULSE 56; RESP 16; TEMP 36.6; O2SAT 98
== END 2023-11-26 00:16 | disposition home or self-care (01) ==
PROVIDERS: Emergency Provider Emergency Medicine; PCP Internal Medicine; Visit Provider Emergency Medicine
DX: R07.9 Chest pain, unspecified (principal); J44.9 Chronic obstructive pulmonary disease, unspecified; I25.10 Atherosclerotic heart disease of native coronary artery without angina pectoris; Z87.891 Personal history of nicotine dependence; Z95.5 Presence of coronary angioplasty implant and graft
CPT/HCPCS: 71045; 80048; 84484; 85025; 93005; 99283; A4216